=== PATIENT | female | born 1965 | race Caucasian/White ===

== ENCOUNTER 2016-09-21 10:26 | Emergency (ER) | payer OTHER ==
[~2016-09-21] VITALS: Ht 170.1 cm; Wt 74.8 kg
[~2016-09-21 10:26] MED LIST: 'zithromax250 MG PO; ADDERALL10 MG PO; ALBUTEROL0.09 MG/A2 IH; AMOXICILLIN500 M3 PO; ANAPROX DS550 MG PO; ANTIBIOTIC O500 U/GM TP; ATARAX25 MG PO; ATIVAN0.5 MG PO; AUGMENTIN 875 M1 TAB PO; AUGMENTIN 875875 MG PO; AVPAK PRIMIDONE50 M1 PO; BACTRIM DS 8001 TA1 PO; CEPHALEXIN500 M1 PO; CIPRO250 MG PO; CIPROFLOXACIN500 MG PO; CLARITIN10 MG PO; CORTISPORIN SUS10 ML OT; CYCLOBENZAPRINE10 MG PO; DIFLUCAN150 MG PO; DOLOBID500 MG PO; DOXYCYCLINE100 M2 PO; EES400 MG PO; FLEXERIL10 MG PO; FLONASE 0.05% 121 EA NAS; HYCODAN,HYDROME10 ML PO; HYDROCODONE BIT1 T11 PO; IBU800 MG PO; IMITREX100 MG PO; KEFLEX500 MG PO; KENALOG 0.5% CR15 GM PO; KENALOG0.1% TP; LEXAPRO20 MG PO; MACROBID100 M1 PO; MEDROL DOSEPAK4 MG PO; MEDROL4 M1 PO; MOTRIN600 MG PO; MOTRIN800 MG PO; NAPROSYN500 MG PO; NORCO 10-325 T1 EACH PO; NORCO 325 MG-101 TAB PO; PERCOCET 325 MG1 TA2 PO; PERCOCET 325 MG1 TA7 PO; PERMETHRIN TP; PHENERGAN W/ DE30 ML PO; PRAVACHOL80 MG PO; PREDNICOT10 MG PO; PREDNICOT20 MG PO; PREDNISONE10 MG PO; PRIMIDONE50 MG PO; PROPRANOLOL HCL80 M2 PO; PROPRANOLOL HCL80 M3 PO; STRATTERA40 MG PO; TEMAZEPAM15 MG PO; TESSALON PERLE100 M1 PO; TRAMADOL HCL50 MG PO; TRAZODONE50 MG PO; VIBRAMYCIN100 MG PO; VICODIN 5-3001 EACH PO; VICODIN 5/500 505 MG PO; VICODIN 500 MG-1 TAB PO; VISTARIL50 MG PO; VOLTAREN50 M1 PO; ZETIA10 MG PO; ZITHROMAX Z PA250 MG PO; ZOCOR20 MG PO; ZOCOR40 MG PO; ZOFRAN ODT4 MG SL; ZOLPIDEM10 MG PO; [UNRECOGNIZED DRUG - REMARK]; [UNRECOGNIZED DRUG - REMARK]
[2016-09-21] MEDS ORDERED: TRAMADOL HCL50 MG PO (13:28)
== END 2016-09-21 13:31 | disposition home or self-care (01) ==
LOC: ED 10:26
DX: S23.41XA Sprain of ribs, initial encounter (principal); Z90.49 Acquired absence of other specified parts of digestive tract; Z90.710 Acquired absence of both cervix and uterus; Z98.890 Other specified postprocedural states; Z79.899 Other long term (current) drug therapy; Z88.5 Allergy status to narcotic agent; Z88.6 Allergy status to analgesic agent; X58.XXXA Exposure to other specified factors, initial encounter; Y93.89 Activity, other specified; Y92.89 Other specified places as the place of occurrence of the external cause; Y99.9 Unspecified external cause status

== ENCOUNTER 2016-10-17 17:07 | Emergency (ER) | payer OTHER ==
[~2016-10-17] VITALS: Ht 170.1 cm; Wt 74.8 kg
[2016-10-17 19:07] LABS: BASO % 0.2 % (0.0-1.0); EOS % 0.2 % (1.0-4.0); HEMATOCRIT 38.4 % (37.0-47.0); HEMOGLOBIN 12.7 g/dl (12.0-16.0); LYMPH # 2.9 10*3/uL (1.3-4.4); LYMPH % 49.1 % (27.0-41.0); MEAN CELL VOLUME 90.8 fl (81.0-99.0); MEAN CORPUSCULAR HGB CONC 33.1 g/dl (33.0-37.0); MEAN PLATELET VOLUME 9.7 fl (9.6-12.3); MONO # 0.5 10*3/uL (0.1-1.0); MONO % 7.8 % (3.0-9.0); NEUT # 2.5 10*3/uL (2.3-7.9); NEUT % 42.5 % (47.0-73.0); PLATELET COUNT AUTOMATED 350 10*3/uL (130-400); RED BLOOD COUNT 4.23 10*6/uL (4.10-5.10); RED CELL DISTRI WIDTH 14.1 % (0-14.5); WHITE BLOOD COUNT 5.8 10*3/uL (4.8-10.8)
[2016-10-17 19:45] LABS: ALBUMIN 3.4 gm/dl (3.1-4.5); ALKALINE PHOSPHATASE 120 U/L (45-117); BILIRUBIN, TOTAL 0.5 mg/dl (0.2-1.0); BUN 11 mg/dl (7-24); CARBON DIOXIDE 25 mmol/L (21-32); CHLORIDE 108 mmol/L (98-107); EST GLOM FILT AFRICAN AMERICAN > 60 ml/min; GLUCOSE 102 mg/dL (65-99); POTASSIUM 3.5 mmol/L (3.5-5.1); SGOT/AST 17 IU/L (3-35); SGPT/ALT 23 U/L (12-78); SODIUM 139 mmol/L (136-145); TOTAL PROTEIN 7.1 gm/dL (6.4-8.2)
[2016-10-17 20:32] LABS: BILIRUBIN NEGATIVE (NEGATIVE); BLOOD NEGATIVE (NEGATIVE); CLARITY SL CLOUDY (CLEAR); COLOR YELLOW (YELLOW); GLUCOSE NEGATIVE (NEGATIVE); KETONE NEGATIVE (NEGATIVE); LEUKO ESTERASE 3+ (NEGATIVE); NITRITE POSITIVE (NEGATIVE); PROTEIN NEGATIVE (NEGATIVE); SPECIFIC GRAVITY <= 1.005 (1.005-1.030); UROBILINOGEN 0.2 E.U./dl (0.2-1.0)
[2016-10-17 20:38] LABS: BACTERIA 4+; EPITHELIAL CELLS 0-2; URINE REFLEX COMMENT YES (NO); WBC 21-30 wbc/hpf (0-5)
[2016-10-17] MEDS ORDERED: MACROBID100 M1 PO (21:45)
[2016-10-17] MEDS ORDERED: PYRIDIUM200 M1 PO (21:45)
== END 2016-10-17 22:53 | disposition home or self-care (01) ==
LOC: ED 17:07
PROVIDERS: Nurse Practitioner Family
DX: N39.0 Urinary tract infection, site not specified (principal); Z88.6 Allergy status to analgesic agent; Z79.899 Other long term (current) drug therapy; Z90.49 Acquired absence of other specified parts of digestive tract

== ENCOUNTER 2016-11-01 14:54 | Emergency (ER) | payer OTHER ==
[~2016-11-01] VITALS: Wt 74.8 kg
[~2016-11-01 14:54] MED LIST changes: +PYRIDIUM200 M1 PO
== END 2016-11-01 18:09 | disposition home or self-care (01) ==
LOC: ED 14:54
DX: S20.211A Contusion of right front wall of thorax, initial encounter (principal); M54.6 Pain in thoracic spine; Z88.6 Allergy status to analgesic agent; Z79.899 Other long term (current) drug therapy; W18.09XA Striking against other object with subsequent fall, initial encounter; Y93.89 Activity, other specified; Y92.89 Other specified places as the place of occurrence of the external cause; Y99.8 Other external cause status

== ENCOUNTER 2016-11-03 15:12 | Emergency (ER) | payer OTHER ==
[~2016-11-03] VITALS: Ht 170.1 cm; Wt 74.8 kg
== END 2016-11-03 17:12 | disposition home or self-care (01) ==
LOC: ED 15:12
DX: S20.211D Contusion of right front wall of thorax, subsequent encounter (principal); M54.5 Low back pain; Z90.49 Acquired absence of other specified parts of digestive tract; Z90.710 Acquired absence of both cervix and uterus; Z98.890 Other specified postprocedural states; Z79.899 Other long term (current) drug therapy; Z88.5 Allergy status to narcotic agent; Z88.6 Allergy status to analgesic agent; X58.XXXD Exposure to other specified factors, subsequent encounter

== ENCOUNTER → 2016-11-10 | Outpatient (CLI) | payer OTHER | END | disposition home or self-care (01) | LOC: MRI 11-08 07:00 → LAB 10:32 → MRI 11:00 | DX: M54.6 Pain in thoracic spine (principal); M54.9 Dorsalgia, unspecified ==

== ENCOUNTER 2017-01-01 19:26 | Emergency (ER) | payer OTHER ==
[~2017-01-01] VITALS: Ht 170.1 cm; Wt 79.4 kg
[2017-01-01 20:09] LABS: URINE AMPHETAMINES < 1000 (1000ng/ml); URINE BARBITURATES > 200 (200ng/ml); URINE COCAINE < 300 (300ng/ml)
[2017-01-01 20:10] LABS: BASO % 0.4 % (0.0-1.0); EOS % 0.5 % (1.0-4.0); HEMATOCRIT 35.7 % (37.0-47.0); HEMOGLOBIN 11.8 g/dl (12.0-16.0); LYMPH # 2.6 10*3/uL (1.3-4.4); LYMPH % 46.4 % (27.0-41.0); MEAN CORPUSCULAR HGB 29.4 pg (27.0-31.0); MEAN CORPUSCULAR HGB CONC 33.1 g/dl (33.0-37.0); MEAN PLATELET VOLUME 10.1 fl (9.6-12.3); MONO # 0.3 10*3/uL (0.1-1.0); MONO % 5.1 % (3.0-9.0); NEUT # 2.6 10*3/uL (2.3-7.9); NEUT % 47.4 % (47.0-73.0); PLATELET COUNT AUTOMATED 322 10*3/uL (130-400); RED BLOOD COUNT 4.01 10*6/uL (4.10-5.10); RED CELL DISTRI WIDTH 12.5 % (0-14.5); WHITE BLOOD COUNT 5.5 10*3/uL (4.8-10.8)
[2017-01-01 20:26] LABS: ALBUMIN 3.3 gm/dl (3.1-4.5); ALKALINE PHOSPHATASE 149 U/L (45-117); BILIRUBIN, TOTAL 0.5 mg/dl (0.2-1.0); BUN 10 mg/dl (7-24); CARBON DIOXIDE 25 mmol/L (21-32); CHLORIDE 107 mmol/L (98-107); EST GLOM FILT AFRICAN AMERICAN > 60 ml/min; GLUCOSE 113 mg/dL (65-99); POTASSIUM 2.7 mmol/L (3.5-5.1); SGOT/AST 20 IU/L (3-35); SGPT/ALT 20 U/L (12-78); SODIUM 142 mmol/L (136-145); TOTAL PROTEIN 7.1 gm/dL (6.4-8.2)
== END 2017-01-02 00:56 | disposition home or self-care (01) ==
LOC: ED 19:26
PROVIDERS: Emergency Medicine
DX: T42.4X4A Poisoning by benzodiazepines, undetermined, initial encounter (principal); F41.9 Anxiety disorder, unspecified; E87.6 Hypokalemia; F32.9 Major depressive disorder, single episode, unspecified; Z88.6 Allergy status to analgesic agent; Z79.899 Other long term (current) drug therapy; Y92.9 Unspecified place or not applicable

== ENCOUNTER → 2017-01-24 | Outpatient (CLI) | payer OTHER | END | disposition home or self-care (01) | LOC: RAD 10:46 | DX: M79.602 Pain in left arm (principal); Z98.890 Other specified postprocedural states ==

== ENCOUNTER 2017-02-19 11:44 | Emergency (ER) | payer OTHER ==
[~2017-02-19] VITALS: Ht 170.1 cm; Wt 73.9 kg
[2017-02-19 12:25] LABS: BASO % 0.9 % (0.0-1.0); EOS % 1.1 % (1.0-4.0); HEMATOCRIT 35.9 % (37.0-47.0); HEMOGLOBIN 11.9 g/dl (12.0-16.0); LYMPH # 1.8 10*3/uL (1.3-4.4); MEAN CELL VOLUME 87.6 fl (81.0-99.0); MEAN CORPUSCULAR HGB CONC 33.1 g/dl (33.0-37.0); MEAN PLATELET VOLUME 9.7 fl (9.6-12.3); MONO # 0.2 10*3/uL (0.1-1.0); MONO % 6.6 % (3.0-9.0); NEUT # 1.4 10*3/uL (2.3-7.9); NEUT % 39.1 % (47.0-73.0); PLATELET COUNT AUTOMATED 297 10*3/uL (130-400); RED CELL DISTRI WIDTH 12.9 % (0-14.5); WHITE BLOOD COUNT 3.5 10*3/uL (4.8-10.8)
[2017-02-19 12:39] LABS: ALBUMIN 3.1 gm/dl (3.1-4.5); ALKALINE PHOSPHATASE 129 U/L (45-117); BUN 13 mg/dl (7-24); CHLORIDE 107 mmol/L (98-107); CREATININE 0.79 mg/dL (0.55-1.02); POTASSIUM 3.2 mmol/L (3.5-5.1); SGOT/AST 18 IU/L (3-35); SGPT/ALT 24 U/L (12-78); SODIUM 141 mmol/L (136-145); TOTAL PROTEIN 6.7 gm/dL (6.4-8.2)
[2017-02-19] MEDS ORDERED: FLAGYL500 MG PO (13:57)
[2017-02-19] MEDS ORDERED: LEVOFLOXACIN500 MG PO (13:57)
== END 2017-02-19 14:11 | disposition home or self-care (01) ==
LOC: ED 11:44
PROVIDERS: Emergency Medicine
DX: K57.92 Diverticulitis of intestine, part unspecified, without perforation or abscess without bleeding (principal); Z88.6 Allergy status to analgesic agent; Z79.899 Other long term (current) drug therapy

== ENCOUNTER → 2017-07-26 | Outpatient (CLI) | payer OTHER ==
[~2017-07-26] MED LIST changes: +FLAGYL500 MG PO; +LEVOFLOXACIN500 MG PO
== END | disposition home or self-care (01) ==
LOC: LAB 08:06 → CT 09:00
PROVIDERS: Internal Medicine Hematology & Oncology
DX: K76.0 Fatty (change of) liver, not elsewhere classified (principal); K57.30 Diverticulosis of large intestine without perforation or abscess without bleeding

== ENCOUNTER 2017-08-17 14:21 | Emergency (ER) | payer OTHER ==
[~2017-08-17] VITALS: Ht 170.1 cm; Wt 72.6 kg
[2017-08-17] MEDS ORDERED: DELTASONE20 M1 PO (16:19)
[2017-08-17] MEDS ORDERED: ZITHROMAX250 MG PO (16:19)
== END 2017-08-17 16:22 | disposition home or self-care (01) ==
LOC: ED 14:21
DX: J40 Bronchitis, not specified as acute or chronic (principal); R51 Headache; H92.03 Otalgia, bilateral; R19.7 Diarrhea, unspecified; Z79.899 Other long term (current) drug therapy

== ENCOUNTER 2017-08-21 11:12 | Emergency (ER) | payer OTHER ==
[~2017-08-21] VITALS: Ht 170.1 cm; Wt 72.6 kg
[~2017-08-21 11:12] MED LIST changes: +DELTASONE20 M1 PO; +ZITHROMAX250 MG PO
[2017-08-21 12:00] LABS: BASO % 0.1 % (0.0-1.0); HEMATOCRIT 36.3 % (37.0-47.0); HEMOGLOBIN 11.7 g/dl (12.0-16.0); LYMPH # 3.3 10*3/uL (1.3-4.4); MEAN CELL VOLUME 86.4 fl (81.0-99.0); MEAN CORPUSCULAR HGB 27.9 pg (27.0-31.0); MEAN CORPUSCULAR HGB CONC 32.2 g/dl (33.0-37.0); MONO # 0.5 10*3/uL (0.1-1.0); MONO % 5.8 % (3.0-9.0); NEUT # 4.1 10*3/uL (2.3-7.9); NEUT % 51.6 % (47.0-73.0); PLATELET COUNT AUTOMATED 306 10*3/uL (130-400); RED CELL DISTRI WIDTH 14.1 % (0-14.5); WHITE BLOOD COUNT 7.9 10*3/uL (4.8-10.8)
[2017-08-21 12:20] LABS: ALBUMIN 3.2 gm/dl (3.1-4.5); ALKALINE PHOSPHATASE 122 U/L (45-117); BUN 12 mg/dl (7-24); CHLORIDE 106 mmol/L (98-107); CREATININE 0.69 mg/dL (0.55-1.02); POTASSIUM 2.8 mmol/L (3.5-5.1); SGOT/AST 10 IU/L (3-35); SGPT/ALT 18 U/L (12-78); SODIUM 140 mmol/L (136-145); TOTAL PROTEIN 6.7 gm/dL (6.4-8.2)
[2017-08-21] MEDS ORDERED: EFFER-K20 MEQ PO (12:47)
== END 2017-08-21 12:56 | disposition home or self-care (01) ==
LOC: ED 11:12
PROVIDERS: Nurse Practitioner Family
DX: J20.9 Acute bronchitis, unspecified (principal); E87.6 Hypokalemia; R03.0 Elevated blood-pressure reading, without diagnosis of hypertension; F17.200 Nicotine dependence, unspecified, uncomplicated; Z90.49 Acquired absence of other specified parts of digestive tract; Z90.710 Acquired absence of both cervix and uterus; Z98.890 Other specified postprocedural states; Z79.899 Other long term (current) drug therapy; Z88.5 Allergy status to narcotic agent; Z88.6 Allergy status to analgesic agent

== ENCOUNTER 2017-08-25 14:43 | Emergency (ER) | payer OTHER ==
[~2017-08-25] VITALS: Ht 170.1 cm; Wt 72.6 kg
[~2017-08-25 14:43] MED LIST changes: +EFFER-K20 MEQ PO; -PROPRANOLOL HCL80 M2 PO; +PROPRANOLOL HYD80 M1 PO
[2017-08-25 16:00] LABS: BASO % 0.3 % (0.0-1.0); EOS # 0.1 10*3/uL (0.0-0.4); EOS % 1.2 % (1.0-4.0); HEMATOCRIT 38.2 % (37.0-47.0); HEMOGLOBIN 12.3 g/dl (12.0-16.0); LYMPH # 2.2 10*3/uL (1.3-4.4); LYMPH % 37.8 % (27.0-41.0); MEAN CORPUSCULAR HGB CONC 32.2 g/dl (33.0-37.0); MEAN PLATELET VOLUME 10.2 fl (9.6-12.3); MONO # 0.4 10*3/uL (0.1-1.0); MONO % 7.5 % (3.0-9.0); NEUT # 3.1 10*3/uL (2.3-7.9); NEUT % 52.9 % (47.0-73.0); PLATELET COUNT AUTOMATED 285 10*3/uL (130-400); RED BLOOD COUNT 4.39 10*6/uL (4.10-5.10); RED CELL DISTRI WIDTH 14.4 % (0-14.5); WHITE BLOOD COUNT 5.9 10*3/uL (4.8-10.8)
[2017-08-25 16:16] LABS: ALBUMIN 3.3 gm/dl (3.1-4.5); ALKALINE PHOSPHATASE 130 U/L (45-117); BUN 17 mg/dl (7-24); CHLORIDE 105 mmol/L (98-107); CREATININE 0.87 mg/dL (0.55-1.02); POTASSIUM 2.6 mmol/L (3.5-5.1); SGOT/AST 16 IU/L (3-35); SGPT/ALT 17 U/L (12-78); SODIUM 140 mmol/L (136-145); TOTAL PROTEIN 7.1 gm/dL (6.4-8.2)
[2017-08-25] MEDS ORDERED: TESSALON PERLE100 M1 PO (16:37)
[2017-08-25] MEDS ORDERED: KLOR-CON M2020 ME1 PO (16:37)
== END 2017-08-25 16:43 | disposition home or self-care (01) ==
LOC: ED 14:43
PROVIDERS: Nurse Practitioner Family
DX: J20.9 Acute bronchitis, unspecified (principal); E87.6 Hypokalemia; R03.0 Elevated blood-pressure reading, without diagnosis of hypertension; Z90.49 Acquired absence of other specified parts of digestive tract; Z90.710 Acquired absence of both cervix and uterus; Z98.890 Other specified postprocedural states; Z79.899 Other long term (current) drug therapy; Z88.5 Allergy status to narcotic agent; Z88.6 Allergy status to analgesic agent; Z88.8 Allergy status to other drugs, medicaments and biological substances

== ENCOUNTER 2017-08-26 18:50 | Inpatient (IN) | payer OTHER ==
[~2017-08-26] VITALS: Ht 170.1 cm; Wt 77.1 kg
--- NOTE | ~2017-08-26 | EKG ---
[place], [place] ELECTROCARDIOGRAM REPORT NAME: MAYITO CABRERA UNIT #: [id number] ROOM: 426 DOCTOR: EDMUND NOBLE,YVES BIRTHDATE: [birth year] DOS: 08/26/2017 TIME: 9:41. IMPRESSION: 1. Sinus rhythm. 2. Sinus tachycardia. 3. Low voltage complexes. 4. 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 5. Normal QT interval. YVES SHAFFER MD CM:EKGRPT:ELECTROCARDIOGRAM REPORT [id number] YVES SHAFFER MD
--- NOTE | ~2017-08-26 | WRIGHTHP ---
[place], [place] PATIENT HISTORY AND PHYSICAL EXAM NAME: MAYITO CABRERA UNIT #: [id number] ROOM: 426 DOCTOR: SHONNA EVANS MD BIRTHDATE: [birth year] DOS: 08/26/2017 HISTORY OF PRESENT ILLNESS: The patient is 51 years old, very well known to us. She has had multiple ER visits with complaints of cough and chest congestion and shortness of breath. The patient has been treated with antibiotics as an outpatient and did not get any better, so she finally decided to come back to the Emergency Room yesterday and she was admitted because of continued complaints of chest pain and shortness of breath. PAST MEDICAL HISTORY: Significant for: 1. Benign hypertension. 2. Major depression, mild, recurrent. 3. Mixed hyperlipidemia. 4. Generalized anxiety disorder. MEDICATIONS: Zolpidem 10 at bedtime, Pravachol 80 daily, propranolol 80 daily, potassium 20 daily, lorazepam 0.5 at bedtime, Zetia 10 daily, Lexapro 20 daily. SOCIAL HISTORY: Smoker of about half to 1 pack of cigarettes. Denies using any alcohol. PHYSICAL EXAMINATION: GENERAL: She is awake and alert and oriented. VITAL SIGNS: Graphic trend shows blood pressure of 102/52, pulse of 102, respirations 18, temperature 97.2. LUNGS: Clear, except few rales heard at the bases. HEART: Regular. ABDOMEN: Obese. EXTREMITIES: Without any edema. LABORATORY DATA: Chest x-ray shows segmental atelectasis. White cell count is 4.2. ASSESSMENT AND PLAN: 1. This is a patient who presents with cough and shortness of breath, most likely has underlying pneumonia, possible gram negative. We will do a CT of the chest this morning to see the extent of infection. 2. Moderate cigarette smoker. Advised smoking cessation. Low dose steroid was started during the night. This is causing the patient to have a lot of tremors, so we will cut back on the steroid dosage. 3. Generalized anxiety disorder. Home medications have been continued. 4. Chest pain, noncardiac, atypical, most likely from continued cough. Tylenol has been ordered for pain. [place], [place] PATIENT HISTORY AND PHYSICAL EXAM NAME: MAYITO CABRERA UNIT #: [id number] ROOM: 426 DOCTOR: SHONNA EVANS MD BIRTHDATE: [birth year] SHONNA EVANS MD CM:HISPHYS:PATIENT HISTORY AND PHYSICAL EXAMINATION 0747 5 SHONNA EVANS MD 08/27/1746 interface
[~2017-08-26 18:50] MED LIST changes: +KLOR-CON M2020 ME1 PO
[2017-08-26 18:51] VITALS: BP 129/87
[2017-08-26 19:40] LABS: BASO % 0.5 % (0.0-1.0); EOS # 0.1 10*3/uL (0.0-0.4); EOS % 1.4 % (1.0-4.0); HEMOGLOBIN 11.7 g/dl (12.0-16.0); LYMPH # 1.9 10*3/uL (1.3-4.4); LYMPH % 45.1 % (27.0-41.0); MEAN CELL VOLUME 86.3 fl (81.0-99.0); MEAN CORPUSCULAR HGB 28.1 pg (27.0-31.0); MEAN CORPUSCULAR HGB CONC 32.5 g/dl (33.0-37.0); MEAN PLATELET VOLUME 10.1 fl (9.6-12.3); MONO # 0.4 10*3/uL (0.1-1.0); NEUT # 1.8 10*3/uL (2.3-7.9); NEUT % 42.5 % (47.0-73.0); PLATELET COUNT AUTOMATED 246 10*3/uL (130-400); RED BLOOD COUNT 4.17 10*6/uL (4.10-5.10); RED CELL DISTRI WIDTH 14.6 % (0-14.5); WHITE BLOOD COUNT 4.2 10*3/uL (4.8-10.8)
[2017-08-26 19:57] LABS: ALBUMIN 3.1 gm/dl (3.1-4.5); ALKALINE PHOSPHATASE 122 U/L (45-117); BUN 13 mg/dl (7-24); CHLORIDE 110 mmol/L (98-107); CREATININE 0.89 mg/dL (0.55-1.02); POTASSIUM 3.4 mmol/L (3.5-5.1); SGOT/AST 13 IU/L (3-35); SGPT/ALT 17 U/L (12-78); SODIUM 139 mmol/L (136-145); TOTAL PROTEIN 6.7 gm/dL (6.4-8.2)
[2017-08-26 19:59] LABS: TROPONIN I < 0.015 ng/ml (<0.045)
[2017-08-26 20:28] VITALS: BP 138/78
[2017-08-26 21:24] VITALS: BP 113/52
[2017-08-27] VITALS: BP 102/52
[2017-08-27 08:00] VITALS: BP 110/63
[2017-08-27 12:00] VITALS: BP 135/70
[2017-08-27 16:00] VITALS: BP 102/42
== END 2017-08-27 16:44 | disposition left against medical advice (07) | DRG 178 ==
LOC: ED 18:50 → EDHOLD 20:43 → 4E 20:55
PROVIDERS: Emergency Medicine Emergency Medical Services
DX: J15.6 Pneumonia due to other Gram-negative bacteria (principal); F33.0 Major depressive disorder, recurrent, mild; M54.5 Low back pain; E78.2 Mixed hyperlipidemia; F41.1 Generalized anxiety disorder; J40 Bronchitis, not specified as acute or chronic; I10 Essential (primary) hypertension; G89.29 Other chronic pain; F17.210 Nicotine dependence, cigarettes, uncomplicated; R07.89 Other chest pain; Z53.21 Procedure and treatment not carried out due to patient leaving prior to being seen by health care provider; Z88.5 Allergy status to narcotic agent; Z88.8 Allergy status to other drugs, medicaments and biological substances; Z91.041 Radiographic dye allergy status; Z79.899 Other long term (current) drug therapy; Z87.440 Personal history of urinary (tract) infections; Z90.710 Acquired absence of both cervix and uterus; Z82.49 Family history of ischemic heart disease and other diseases of the circulatory system; Z82.3 Family history of stroke; Z80.9 Family history of malignant neoplasm, unspecified; Z87.19 Personal history of other diseases of the digestive system

== ENCOUNTER 2017-12-19 12:23 | Emergency (ER) | payer OTHER ==
[~2017-12-19] VITALS: Ht 170.2 cm; Wt 72.6 kg
[2017-12-19] MEDS ORDERED: PREDNISONE20 M1 PO (13:05)
[2017-12-19] MEDS ORDERED: LIDEX 0.05% CRE15 GM T (13:05)
[2018-01-11] MEDS ORDERED: FAMCICLOVIR500 MG PO (12:57)
[2018-01-11] MEDS ORDERED: PREDNISONE20 M1 PO (12:57)
== END 2017-12-19 13:34 | disposition home or self-care (01) ==
LOC: ED 12:23
DX: L25.9 Unspecified contact dermatitis, unspecified cause (principal); Z88.6 Allergy status to analgesic agent; Z79.899 Other long term (current) drug therapy

== ENCOUNTER 2017-12-23 11:59 | Emergency (ER) | payer OTHER ==
[~2017-12-23] VITALS: Ht 170.1 cm; Wt 74.8 kg
[~2017-12-23 11:59] MED LIST changes: +LIDEX 0.05% CRE15 GM T; +PREDNISONE20 M1 PO
[2017-12-23] MEDS ORDERED: VALTREX1000 MG PO (12:35)
[2018-01-11] MEDS ORDERED: FAMCICLOVIR500 MG PO (12:57)
[2018-01-11] MEDS ORDERED: PREDNISONE20 M1 PO (12:57)
== END 2017-12-23 12:57 | disposition home or self-care (01) ==
LOC: ED 11:59
DX: R21 Rash and other nonspecific skin eruption (principal); R03.0 Elevated blood-pressure reading, without diagnosis of hypertension; Z90.49 Acquired absence of other specified parts of digestive tract; Z98.890 Other specified postprocedural states; Z79.899 Other long term (current) drug therapy; Z88.5 Allergy status to narcotic agent; Z88.6 Allergy status to analgesic agent

== ENCOUNTER 2017-12-28 12:43 | Emergency (ER) | payer OTHER ==
[~2017-12-28] VITALS: Ht 170.1 cm; Wt 74.8 kg
[~2017-12-28 12:43] MED LIST changes: +VALTREX1000 MG PO
[2017-12-28] MEDS ORDERED: LIDODERM1 EACH T (13:46)
[2018-01-11] MEDS ORDERED: PREDNISONE20 M1 PO (12:57)
[2018-01-11] MEDS ORDERED: FAMCICLOVIR500 MG PO (12:57)
== END 2017-12-28 14:05 | disposition home or self-care (01) ==
LOC: ED 12:43
DX: B02.9 Zoster without complications (principal); M54.9 Dorsalgia, unspecified; Z88.6 Allergy status to analgesic agent; Z79.899 Other long term (current) drug therapy

== ENCOUNTER 2018-04-22 19:13 | Emergency (ER) | payer OTHER ==
[~2018-04-22] VITALS: Ht 170.1 cm; Wt 77.1 kg
[~2018-04-22 19:13] MED LIST changes: +FAMCICLOVIR500 MG PO; +LIDODERM1 EACH T
== END 2018-04-22 21:55 | disposition home or self-care (01) ==
LOC: ED 19:13
DX: S40.012A Contusion of left shoulder, initial encounter (principal); Z88.5 Allergy status to narcotic agent; Z91.041 Radiographic dye allergy status; Z88.6 Allergy status to analgesic agent; Z79.899 Other long term (current) drug therapy; Z90.49 Acquired absence of other specified parts of digestive tract; Z90.710 Acquired absence of both cervix and uterus; W22.8XXA Striking against or struck by other objects, initial encounter; Y93.89 Activity, other specified; Y92.89 Other specified places as the place of occurrence of the external cause; Y99.8 Other external cause status

== ENCOUNTER 2018-07-21 14:18 | Inpatient (IN) | payer OTHER ==
[~2018-07-21] VITALS: Ht 170.1 cm; Wt 75.9 kg
--- NOTE | ~2018-07-21 | PR ---
[place], [place] PROGRESS NOTE NAME: MAYITO CABRERA UNIT #: [id number] ROOM: [facility] DOCTOR: MARINA MOCK MD BIRTHDATE: [birth year] DOS: 07/22/2018 SUBJECTIVE: The patient is symptomatic and insisting on going home, but she was deemed high risk for suicide by Psychiatry, so she has been kept at the hospital against her wishes on Psychiatry recommendation. OBJECTIVE: VITAL SIGNS: Blood pressure 110/50, heart rate of 66 beats per minute, breathing normally, afebrile. GENERAL APPEARANCE: The patient is alert and oriented x 3, in no visible distress. HEENT AND NECK: Exam within normal limits. CARDIOVASCULAR SYSTEM: Heart rate is regular in rate and rhythm. S1 and S2 normally audible. LUNGS: Clear to auscultation. ABDOMEN: Soft, nontender. No obvious organomegaly. Bowel sounds are present. EXTREMITIES: Without significant cyanosis or edema. The patient with overdose of trazodone, Ativan and Atarax with QT prolongation, is being followed closely with EKGs and magnesium level is high after magnesium level infusion. IMPRESSION: 1. The patient's suicide attempt at home and QT prolongation, is insisting on going home, but Psychiatry consult has recommended to keep the patient in the hospital against her wishes for her own safety because she is at a high risk for suicide. Psychosocial services are following the patient. 2. Drug overdose with trazodone, Ativan and Atarax with QT prolongation, for which EKGs are being monitored and magnesium has been given. The patient is awake, alert and oriented now. 3. Major depression, recurrent, mild to moderate, treated with multiple medications in the past. Psychiatry following. 4. Benign essential hypertension with controlled blood pressures. 5. Mixed hyperlipidemia, treated with Pravachol. [facility], [place] PROGRESS NOTE NAME: MAYITO CABRERA UNIT #: [id number] ROOM: [facility] DOCTOR: MARINA MOCK MD BIRTHDATE: [birth year] MARINA MOCK MD CM:PNTRANS [id number] MARINA MOCK MD 07/23/18 0255 interface
--- NOTE | ~2018-07-21 | EKG ---
[place], [place] ELECTROCARDIOGRAM REPORT NAME: MAYITO CABRERA UNIT #: [id number] ROOM: [facility] DOCTOR: KAYLIE DRAFT REPORT BIRTHDATE: [birth year] [facility] Test Date: 2018-07-23 Test Time: 06:51:32 Pat Name: MAYITO CABRERA Department: Room: [place] [address] Gender: F Runner Worker: Leny Goldstein : 1965 Requested By: MARINA MOCK Order Number: [id number] Reading MD: Kristie Danielson MD Measurements Intervals [place] Rate: 84 P: -20 [place]: 176 QRS: 4 QRSD: 95 T: 25 QT: 406 QTc: 480 Interpretive Statements Sinus rhythm Non specific ST-T abnormality Electronically Signed On 07-23-2018 7:39:21 PST by Kristie Danielson MD CM:EKGRPT:ELECTROCARDIOGRAM REPORT [id number] 0739 MARINA MOCK MD EPIPHANY DRAFT REPORT MARINA MOCK MD
--- NOTE | ~2018-07-21 | WRIGHTHP ---
[place], [place] PATIENT HISTORY AND PHYSICAL EXAM [id number] UNIT #: [id number] ROOM: [facility] DOCTOR: MARINA MOCK MD BIRTHDATE: [birth year] DOS: 07/21/2018 HISTORY OF PRESENT ILLNESS: The patient is a 52-year-old female with a past medical history of: 1. Benign essential hypertension, major depression, recurrent, mild. 2. Mixed hyperlipidemia. 3. Generalized anxiety disorder. 4. Chronic primary insomnia. The patient presented to [facility] Emergency Department with complaints of depression and taking unknown amount of trazodone, Ativan, Atarax about an hour in an attempted suicide. The patient was evaluated in the Emergency Department. Poison Control was consulted. EKG was performed and Poison Control asked the patient's QT interval to be monitored with an EKG. The patient was given 2 grams of IV magnesium and the patient was in the ICU, wakes up easily, does not look very drowsy and in no visible distress. PHYSICAL EXAMINATION: GENERAL: Alert and oriented x 3. No visible distress. The patient is slightly sleepy, but wakes up easily. VITAL SIGNS: Blood pressure 111/62, heart rate of 71 beats per minute, breathing 22 times per minute, afebrile. HEENT AND NECK: Extraocular movements are intact. Sclerae are anicteric. Oral mucosa is moist and clean. No obvious facial weakness. Neck is supple without any lymphadenopathy. No thyromegaly. No JVD. No carotid arterial bruits. LUNGS: Clear to auscultation. No wheezing. No rhonchi. CARDIOVASCULAR SYSTEM: Heart rate is regular in rate and rhythm. S1 and S2 normally audible. No significant murmur or any other abnormal cardiac sounds. ABDOMEN: Soft, nontender. No obvious organomegaly. Bowel sounds are present. No obvious herniation. EXTREMITIES: Without significant cyanosis or edema. Warm to touch. CENTRAL NERVOUS SYSTEM: Alert and oriented x 3. Cranial nerves II-XII are intact. Speech is normal. The patient is able to move all extremities. Normal muscle strength. Deep tendon reflexes are equal on both sides. Plantars were downgoing. LABORATORY DATA: Urine drug screen was negative and will be repeated tomorrow. Salicylate levels were low. Hemoglobin 11. IMPRESSION AND PLAN: 1. The patient with drug overdose with several medications including trazodone, Ativan, Atarax. According to the patient, she is not very drowsy and may not have consumed all the pills she is suspected to. As a precaution, the patient is being watched very closely in the ICU and Poison Control. I have recommended a repeat EKG to watch her QT interval. The patient already given magnesium infusion of 2 grams intravenously and her QT is within normal range on the EKG. 2. History of major depression, recurrent, mild, has been treated and controlled. 3. Benign essential hypertension, treat, blood pressures are staying normal and will be monitored. 4. Mixed hyperlipidemia, treated with Pravachol. [place], [place] PATIENT HISTORY AND PHYSICAL EXAM NAME: MAYITO CABRERA UNIT #: [id number] ROOM: [facility] DOCTOR: EMILI NOBLE,MARINA Fenton BIRTHDATE: [birth year] 5. Suicidal ideation, although the patient does not feel suicidal anymore. Cristina Rousseau from psych certified social workers in health care and psychiatrist, Dr. Li has been consulted. MARINA MOCK MD CM:HISPHYS:PATIENT HISTORY AND PHYSICAL EXAMINATION 27 [phone] MARINA MOCK MD 07/22/18 0038 interface
--- NOTE | ~2018-07-21 | DS ---
[place], [place] DISCHARGE SUMMARY NAME: MAYITO HORAN UNIT #: [id number] ROOM: [facility] DOCTOR: MARINA MOCK MD BIRTHDATE: [birth year] DOS: 07/23/2018 DISCHARGE DIAGNOSES: 1. The patient is suicidal and after suicidal attempt at home being transferred to [facility]. 2. Benign essential hypertension. 3. Mixed hyperlipidemia. 4. Generalized anxiety disorder. 5. Chronic primary insomnia. HOSPITAL COURSE: The patient admitted to [facility] after she presented to the Emergency Department after attempting a drug overdose with trazodone, Ativan, and Atarax in a suicide attempt. The patient was monitored closely in the ICU and had QT prolongation, which was treated with magnesium infusion. Poison Control was consulted and the patient is doing better now. Psychiatry was consulted who recommended that the patient should be treated in the Behavioral Health Unit because she is at high risk for attempted suicide again. The patient required a pink slip to keep her at the hospital against her will because she was trying to leave and alma horan was called when she attempted to leave. Dr. Li, the psychiatrist has accepted her at Behavioral Health Unit where she will be kept until cleared by Psychiatry and considered safe to go home. The patient says now that she is not suicidal and she is feeling well. No chest pain, no shortness of breath, no GI, or urinary symptoms. 1. Drug overdose with trazodone, Ativan, and Atarax with QT prolongation, which has resolved. The patient was monitored closely in the ICU and treated with magnesium infusion. Magnesium levels have been normal. 2. Major depression, recurrent, moderate, treated and controlled, followed by Psychiatry. 3. Benign essential hypertension, treated and controlled. Blood pressure is staying normal. 4. Mixed hyperlipidemia, treated with Pravachol. LABORATORY DATA: Magnesium level at 2.4, hemoglobin 10, white cell count of 3800. Urine cultures grew E. coli. The patient has urinary tract infection, which is now being treated with Ceftin. DISCHARGE MANAGEMENT: Ceftin 500 mg twice a day for a week. The patient is on Abilify 10 mg a day, Zyprexa 10 mg every 4 hours IM p.r.n., lorazepam 1 mg q. 4 hours p.r.n. Ceftin 500 mg b.i.d. for a week, Ambien 5 mg at bedtime p.r.n. for sleep. [place], [place] DISCHARGE SUMMARY NAME: MAYITO HORAN UNIT #: [id number] ROOM: [facility] DOCTOR: MARINA MOCK MD BIRTHDATE: [birth year] MARINA MOCK MD CM:DISCHARG [id number] [id number] MARINA MOCK MD 07/24/18 0351 interface
--- NOTE | ~2018-07-21 | EKG ---
[place], [place] ELECTROCARDIOGRAM REPORT NAME: MAYITO CABRERA UNIT #: [id number] ROOM: [facility] DOCTOR: KAYLIE DRAFT REPORT BIRTHDATE: [birth year] [facility] Test Date: 2018-07-22 Test Time: 12:26:39 Pat Name: MAYITO CABRERA Department: Room: [place] [address] Gender: F Fur Repairer: Leidy Vincent : 1965 Requested By: MARINA MOCK Order Number: [id number] Reading MD: Kristie Danielson MD Measurements Intervals [place] Rate: 87 P: -18 [place]: 163 QRS: 11 QRSD: 93 T: 31 QT: 491 QTc: 591 Interpretive Statements Sinus rhythm Anteroseptal infarct, old Prolonged QT interval Baseline wander in lead(s) V5 No previous ECG available for comparison Electronically Signed On 07-23-2018 7:38:40 PST by Kristie Danielson MD CM:EKGRPT:ELECTROCARDIOGRAM REPORT 1226 0738 MARINA MOCK MD EPIPHANY DRAFT REPORT MARINA MOCK MD
--- NOTE | ~2018-07-21 | EKG ---
[place], [place] ELECTROCARDIOGRAM REPORT NAME: MAYITO CABRERA UNIT #: [id number] ROOM: [facility] DOCTOR: KAYLIE DRAFT REPORT BIRTHDATE: [birth year] [facility] Test Date: 2018-07-22 Test Time: 08:22:04 Pat Name: MAYITO CABRERA Department: Room: [place] [address] Gender: F Panel Wirer: Leidy Vincent : 1965 Requested By: MARINA MOCK Order Number: [id number] Reading MD: Kristie Danielson MD Measurements Intervals [place] Rate: 82 P: -33 [place]: 158 QRS: 12 QRSD: 92 T: 16 QT: 438 QTc: 512 Interpretive Statements Sinus rhythm Anteroseptal infarct, old Prolonged QT interval No previous ECG available for comparison Electronically Signed On 07-23-2018 7:38:27 PST by Kristie Danielson MD CM:EKGRPT:ELECTROCARDIOGRAM REPORT 0738 MARINA MOCK MD EPIPHANY DRAFT REPORT MARINA MOCK MD
--- NOTE | ~2018-07-21 | EKG ---
[place], [place] ELECTROCARDIOGRAM REPORT NAME: MAYITO CABRERA UNIT #: [id number] ROOM: [facility] DOCTOR: KAYLIE DRAFT REPORT BIRTHDATE: [birth year] [facility] Test Date: 2018-07-21 Test Time: 14:38:47 Pat Name: MAYITO CABRERA Department: Room: [facility] Gender: F Supply Room Clerk: ROYA : 1965 Requested By: TEAGAN PERDUE Order Number: [id number] Reading MD: Kristie Danielson MD Measurements Intervals [place] Rate: 82 P: -3 [place]: 157 QRS: 1 QRSD: 90 T: 22 QT: 442 QTc: 517 Interpretive Statements Sinus rhythm Probable anteroseptal infarct, old Prolonged QT interval Baseline wander in lead(s) V3 Electronically Signed On 07-23-2018 7:35:02 PST by Kristie Danielson MD CM:EKGRPT:ELECTROCARDIOGRAM REPORT 1438 0735 TEAGAN PERDUE EPIPHANY DRAFT REPORT TEAGAN PERDUE
--- NOTE | ~2018-07-21 | EKG ---
[place], [place] ELECTROCARDIOGRAM REPORT NAME: MAYITO CABRERA UNIT #: [id number] ROOM: [facility] DOCTOR: KAYLIE DRAFT REPORT BIRTHDATE: [birth year] [facility] Test Date: 2018-07-21 Test Time: 20:18:41 Pat Name: MAYITO CABRERA Department: Room: [place] [address] Gender: F Computer Operations Technician: GILBERT : 1965 Requested By: MARINA MOCK Order Number: [id number] Reading MD: Kristie Danielson MD Measurements Intervals [place] Rate: 75 P: -21 MD: 170 QRS: 26 QRSD: 96 T: 26 QT: 495 QTc: 553 Interpretive Statements Sinus rhythm Prolonged QT interval Electronically Signed On 07-23-2018 7:35:58 PST by Kristie Danielson MD CM:EKGRPT:ELECTROCARDIOGRAM REPORT 17 0735 MARINA LOTT DRAFT REPORT MARINA MOCK MD
[~2018-07-21 14:18] MED LIST changes: -ZOLPIDEM10 MG PO; +ZOLPIDEM5 MG PO
[2018-07-21 14:22] VITALS: BP 102/58
[2018-07-21 14:46] LABS: BASO % 0.6 % (0.0-1.0); EOS # 0.1 10*3/uL (0.0-0.4); EOS % 1.4 % (1.0-4.0); HEMATOCRIT 33.9 % (37.0-47.0); LYMPH # 2.5 10*3/uL (1.3-4.4); LYMPH % 48.9 % (27.0-41.0); MEAN CELL VOLUME 86.3 fl (81.0-99.0); MEAN CORPUSCULAR HGB CONC 32.4 g/dl (33.0-37.0); MEAN PLATELET VOLUME 9.8 fl (9.6-12.3); MONO # 0.3 10*3/uL (0.1-1.0); MONO % 6.3 % (3.0-9.0); NEUT # 2.2 10*3/uL (2.3-7.9); NEUT % 42.6 % (47.0-73.0); PLATELET COUNT AUTOMATED 325 10*3/uL (130-400); RED BLOOD COUNT 3.93 10*6/uL (4.10-5.10); RED CELL DISTRI WIDTH 13.7 % (0-14.5); WHITE BLOOD COUNT 5.1 10*3/uL (4.8-10.8)
[2018-07-21 15:03] LABS: ACT PARTIAL THROMBO TIME 23.1 SECONDS (20.8-31.5); INTERNATIONAL NORM RATIO 0.9 (2.0-3.5)
[2018-07-21 15:09] LABS: ACETAMINOPHEN (TYLENOL) < 5.0 ug/ml (10-30); ALBUMIN 3.2 gm/dl (3.1-4.5); ALKALINE PHOSPHATASE 148 U/L (45-117); BUN 12 mg/dl (7-24); CHLORIDE 108 mmol/L (98-107); CREATININE 0.77 mg/dL (0.55-1.02); ETHYL ALCOHOL < 3.0 mg/dl (<3); SGOT/AST 16 IU/L (3-35); SGPT/ALT 19 U/L (12-78); SODIUM 140 mmol/L (136-145); TOTAL PROTEIN 7.1 gm/dL (6.4-8.2)
[2018-07-21 16:00] VITALS: BP 104/62; BP 111/62
[2018-07-21 16:54] LABS: BILIRUBIN NEGATIVE (NEGATIVE); BLOOD TRACE-INTACT (NEGATIVE); CLARITY CLEAR (CLEAR); COLOR YELLOW (YELLOW); GLUCOSE NEGATIVE (NEGATIVE); KETONE NEGATIVE (NEGATIVE); LEUKO ESTERASE 1+ (NEGATIVE); NITRITE POSITIVE (NEGATIVE); PH 5.5 (5.0-9.0); UROBILINOGEN 0.2 E.U./dl (0.2-1.0)
[2018-07-21 17:02] LABS: URINE AMPHETAMINES < 1000 (1000ng/ml); URINE BARBITURATES < 200 (200ng/ml); URINE BENZODIAZEPINES < 200 (200ng/ml); URINE CANNABINOIDS (THC) < 50 (50ng/ml); URINE COCAINE < 300 (300ng/ml); URINE METHADONE < 300 (300ng/ml); URINE OPIATES < 300 (300ng/ml)
[2018-07-21 17:03] LABS: URINE PHENCYCLIDINE < 25 (25ng/ml)
[2018-07-21 17:06] LABS: BACTERIA 4+; EPITHELIAL CELLS 0-2; RBC 0-2 rbc/hpf (0-2); WBC 16-20 wbc/hpf (0-5)
[2018-07-21] MEDS ORDERED: CYMBALTA60 MG PO (17:23)
[2018-07-21] MEDS ORDERED: HYDROCODONE-AC1 EAC1 PO (17:24)
[2018-07-21] MEDS ORDERED: VITAMIN D50000 UNIT PO (17:28)
[2018-07-21] MEDS ORDERED: TRAZODONE50 MG PO (17:28)
[2018-07-21] MEDS ORDERED: REMERON15 M2 PO (17:29)
[2018-07-21] MEDS ORDERED: IBU800 MG PO (17:29)
[2018-07-21] MEDS ORDERED: NATURE'S BLEND F1 MG PO (17:30)
[2018-07-21] MEDS ORDERED: BUSPAR5 MG PO (17:42)
[2018-07-21] MEDS ORDERED: HYDROXYZINE HCL25 MG PO (17:43)
[2018-07-21] MEDS ORDERED: AMITRIPTYLINE25 MG PO (17:45)
[2018-07-21 20:00] VITALS: BP 129/70
[2018-07-22] VITALS: BP 107/53
[2018-07-22 04:00] VITALS: BP 112/62
[2018-07-22 04:38] LABS: BASO % 0.5 % (0.0-1.0); HEMATOCRIT 31.2 % (37.0-47.0); HEMOGLOBIN 9.8 g/dl (12.0-16.0); LYMPH # 2.2 10*3/uL (1.3-4.4); LYMPH % 54.6 % (27.0-41.0); MEAN CELL VOLUME 88.1 fl (81.0-99.0); MEAN CORPUSCULAR HGB 27.7 pg (27.0-31.0); MEAN CORPUSCULAR HGB CONC 31.4 g/dl (33.0-37.0); MEAN PLATELET VOLUME 9.7 fl (9.6-12.3); MONO # 0.2 10*3/uL (0.1-1.0); MONO % 5.2 % (3.0-9.0); NEUT # 1.6 10*3/uL (2.3-7.9); NEUT % 38.7 % (47.0-73.0); PLATELET COUNT AUTOMATED 278 10*3/uL (130-400); RED BLOOD COUNT 3.54 10*6/uL (4.10-5.10); RED CELL DISTRI WIDTH 13.7 % (0-14.5)
[2018-07-22 05:06] LABS: BUN 14 mg/dl (7-24); CHLORIDE 112 mmol/L (98-107); CREATININE 0.73 mg/dL (0.55-1.02); SODIUM 144 mmol/L (136-145)
[2018-07-22 08:00] VITALS: BP 108/60
[2018-07-22 12:00] VITALS: BP 113/55
[2018-07-22 16:00] VITALS: BP 110/50
[2018-07-22 20:00] VITALS: BP 132/73
[2018-07-23] VITALS: BP 120/70
[2018-07-23 04:00] VITALS: BP 110/54
[2018-07-23 05:03] LABS: BASO % 0.5 % (0.0-1.0); EOS # 0.1 10*3/uL (0.0-0.4); EOS % 3.1 % (1.0-4.0); HEMATOCRIT 32.1 % (37.0-47.0); LYMPH # 2.1 10*3/uL (1.3-4.4); LYMPH % 53.7 % (27.0-41.0); MEAN CORPUSCULAR HGB 27.1 pg (27.0-31.0); MEAN CORPUSCULAR HGB CONC 31.2 g/dl (33.0-37.0); MEAN PLATELET VOLUME 9.6 fl (9.6-12.3); MONO # 0.3 10*3/uL (0.1-1.0); MONO % 7.3 % (3.0-9.0); NEUT # 1.4 10*3/uL (2.3-7.9); NEUT % 35.4 % (47.0-73.0); PLATELET COUNT AUTOMATED 276 10*3/uL (130-400); RED BLOOD COUNT 3.69 10*6/uL (4.10-5.10); RED CELL DISTRI WIDTH 13.7 % (0-14.5); WHITE BLOOD COUNT 3.8 10*3/uL (4.8-10.8)
[2018-07-23 05:31] LABS: BUN 13 mg/dl (7-24); CHLORIDE 108 mmol/L (98-107); CREATININE 0.69 mg/dL (0.55-1.02); POTASSIUM 3.1 mmol/L (3.5-5.1); SODIUM 142 mmol/L (136-145)
[2018-07-23 08:00] VITALS: BP 107/74
[2018-07-23 12:00] VITALS: BP 116/68
[2018-07-23] MEDS ORDERED: CEFUROXIME AXE500 MG PO (15:39)
[2018-07-23] MEDS ORDERED: VISTARIL25 MG PO (16:26)
[2018-07-23] MEDS ORDERED: BUSPAR5 MG PO (16:26)
[2018-07-24] MEDS ORDERED: MIRTAZAPINE15 M2 PO (09:37)
[2018-07-24] MEDS ORDERED: ARIPIPRAZOLE10 MG PO (09:37)
== END 2018-07-23 16:12 | disposition home health service (06) | DRG 918 ==
LOC: ED 14:18 → ICCU 15:03 → EDHOLD 15:03 → ICCU 15:21
PROVIDERS: Nurse Practitioner Family; ADMIT Internal Medicine
DX: T43.212A Poisoning by selective serotonin and norepinephrine reuptake inhibitors, intentional self-harm, initial encounter (principal); F33.2 Major depressive disorder, recurrent severe without psychotic features; T43.592A Poisoning by other antipsychotics and neuroleptics, intentional self-harm, initial encounter; E87.8 Other disorders of electrolyte and fluid balance, not elsewhere classified; E87.6 Hypokalemia; I10 Essential (primary) hypertension; E78.2 Mixed hyperlipidemia; F41.1 Generalized anxiety disorder; I45.81 Long QT syndrome; F51.01 Primary insomnia; Z90.49 Acquired absence of other specified parts of digestive tract; Z98.891 History of uterine scar from previous surgery; Z90.710 Acquired absence of both cervix and uterus; Z79.899 Other long term (current) drug therapy; Z88.5 Allergy status to narcotic agent; Z88.8 Allergy status to other drugs, medicaments and biological substances; Z82.49 Family history of ischemic heart disease and other diseases of the circulatory system; Z82.3 Family history of stroke; Z80.8 Family history of malignant neoplasm of other organs or systems; Y92.89 Other specified places as the place of occurrence of the external cause

== ENCOUNTER 2018-07-23 15:43 | Inpatient (IN) | payer OTHER ==
[~2018-07-23] VITALS: Ht 170.1 cm; Wt 73.9 kg
--- NOTE | ~2018-07-23 | CON ---
[place], [place] REPORT OF CONSULTATION NAME: MAYITO CABRERA UNIT #: [id number] ROOM: 316 DOCTOR: MARINA MOCK MD BIRTHDATE: [birth year] DOS: 07/24/2018 ATTENDING: Dr. Davey Li. HISTORY OF PRESENT ILLNESS: The patient is a 52-year-old female with a past medical history of: 1. Recent suicide attempt. 2. Benign essential hypertension. 3. Mixed hyperlipidemia. 4. Generalized anxiety disorder. 5. Chronic primary insomnia. Patient presently admitted at Behavioral Health Unit after a recent suicide attempt and was kept against her will to leave the hospital because of risk to her life and a pink slip was used on recommendation of Psychiatry. Major depression, recurrent, severe, and dysthymic disorder, being followed by Dr. Li. No chest pain, no shortness of breath. No GI or urinary symptoms. REVIEW OF SYSTEMS: Negative except for above-mentioned problems. FAMILY HISTORY: Noncontributory. PRESENT MEDICATIONS: Remeron, vitamin D, propranolol, ibuprofen, folic acid, Abilify, mirtazapine, Zyprexa as needed. ALLERGIES: KNOWN ALLERGIES TO IODINE, MORPHINE, CODEINE, TORADOL. PHYSICAL EXAMINATION: GENERAL: Alert, oriented x 3, in no visible distress. VITAL SIGNS: Blood pressure 120/81, heart rate of 74 beats per minute, breathing 16 times per minute, temperature 98 degrees Fahrenheit. HEENT AND NECK: Extraocular movements are intact. Sclerae are anicteric. Oral mucosa is moist and clean. No obvious facial weakness. Neck is supple without any lymphadenopathy. No thyromegaly. No JVD. No carotid arterial bruits. LUNGS: Clear to auscultation. No wheezing. No rhonchi. CARDIOVASCULAR SYSTEM: Heart rate is regular in rate and rhythm. S1 and S2 normally audible. No significant murmur or any other abnormal cardiac sounds. ABDOMEN: Soft, nontender. No obvious organomegaly. Bowel sounds are present. No obvious herniation. EXTREMITIES: Without significant cyanosis or edema. Warm to touch. CENTRAL NERVOUS SYSTEM: Alert and oriented x 3. Cranial nerves II-XII are intact. Speech is normal. The patient is able to move all extremities. Normal muscle strength. Deep tendon reflexes are equal on both sides. Plantars were downgoing. IMPRESSION: 1. Major depression, recurrent, severe with dysthymic disorder, now being treated with Remeron and Abilify along with Zyprexa as needed by Dr. Li. She is feeling better and being watched for being suicidal and will be discharged after cleared by Dr. Li, her psychiatrist. The patient is denying any [place], [place] REPORT OF CONSULTATION NAME: MAYITO CABRERA UNIT #: [id number] ROOM: [facility] DOCTOR: MARINA MOCK MD BIRTHDATE: [birth year] suicidal thoughts and the patient to be discharged to home soon by Dr. Li. 2. Benign essential hypertension. Blood pressure is being treated and monitored and controlled. 3. Generalized anxiety disorder, being treated and followed, medications adjusted by Dr. Li. Dr. Li, thank you for asking me to see the patient. MARINA MOCK MD CM:CONSTR:REPORT OF CONSULTATION 1342 07/25/18 0224 interface
--- NOTE | ~2018-07-23 | CON ---
[place], [place] REPORT OF CONSULTATION NAME: MAYITO CABRERA UNIT #: [id number] ROOM: 316 DOCTOR: BISI, PHD ADRIENNE BIRTHDATE: [birth year] DOS: 07/24/2018 HISTORY OF PRESENT ILLNESS: The patient is a 52-year-old female referred by Dr. Li for counseling; at the present time, the patient is on the [facility] at [facility]. She was initially admitted to the ICU after an intentional overdose. She lives with her partner and is on disability. She has a son. She denied alcohol use. She endorsed rare tobacco use and occasional marijuana use. PAST MEDICAL HISTORY: Benign essential hypertension, mixed hyperlipidemia, generalized anxiety disorder, chronic primary insomnia. MEDICATIONS: Vitamin D, Inderal-LA, Motrin, folic acid, Abilify, Remeron, Tylenol, Geodon, Ceftin, Ativan. NEUROLOGIC EXAMINATION: The patient was awake, alert and oriented to person, place and time. Mood was stable and affect was slightly restricted in range. She firmly denied suicidal and homicidal ideation, plan, and intent. She states that she does not want to and that she wants to live for her son and her grandchildren including one that will be born in September. Speech and language are within normal limits conversationally. Thought process was linear and goal directed. Thought content was negative for hallucinations and delusions. Insight and judgment appeared fair. Discussed the patient's trauma history and her concerns that she may have PTSD. She plans to follow up with outpatient treatment at [facility]. DIAGNOSES: Major depressive disorder, recurrent, severe; dysthymic disorder; rule out posttraumatic stress disorder. PLAN: Continue following up with outpatient counseling and medication management. Thank you very much for this consult. Leti Calles, PhD CM:CONSTR:REPORT OF CONSULTATION 1656 07/27/18 0846 interface
--- NOTE | ~2018-07-23 | WRIGHTHP ---
[place], [place] PATIENT HISTORY AND PHYSICAL EXAM NAME: MAYITO CABRERA UNIT #: [id number] ROOM: 316 DOCTOR: LUIS CHATMAN MD BIRTHDATE: [birth year] DOS: 07/24/2018 INITIAL PSYCHIATRIC EVALUATION WELL DISCHARGE SUMMARY CHIEF COMPLAINT: "I am just so depressed, my mom is dying, I don't know how to deal with this." HISTORY OF PRESENT ILLNESS: This is a 52-year-old white female who was initially admitted to the ICU following an intentional overdose attempt. The patient did ingest Ativan, Vistaril and trazodone in an attempt to kill herself. She reports ongoing depression that has been made worse recently by her mom's physical decline to the point where she believes her mom's is eminent. The patient reports a lengthy psychiatric history and has been following with Filiberto Guy and also nurse practitioner Zafar for her psychiatric illness. She has been prescribed a plethora of antidepressants. Most recently, there have been four prescribed at the same time. She reports that they are ineffective and she notes decreased sleep with difficulty falling asleep, sleep continuity disturbance, head stock operator awakening, anergia, anhedonia, hopeless, helpless feelings, crying spells, and inability to cope. The patient was initially admitted to further evaluate her lethality however, it became very evident that the patient's mom is physically deteriorating and her mom's may actually be eminent. During the course of my interview, the patient did report that she would not do anything to hurt herself, that she has a son that she values very deeply and also many grandkids and she would not do anything to hurt them in any way. She does not endorse depression and feels that her meds are not working and would like to have her meds adjusted, but does not feel that she needs inpatient stabilization at this point. PAST MEDICAL HISTORY: Remarkable for allergies to CODEINE, IODINE, TORADOL and MORPHINE. SOCIAL HISTORY: The patient does not drink alcohol, smoke cigarettes or use illicit drugs. STRENGTHS: Good verbal skills, ambulatory. WEAKNESSES: Poor coping skills, long-term psychiatric issues. MENTAL STATUS: She is alert and oriented x 3. Mood does seem to be depressed with anxious overtones. She convincingly denies suicidal thoughts, homicidal thoughts, or self-injurious thoughts. There is no hypomania or lyndon. There are no psychotic symptoms. Memory is intact. DIAGNOSES: Major depression, recurrent, severe and dysthymic disorder. PLAN: I did simplify her drug regimen, discontinuing the Ambien, the Lexapro, the Cymbalta, the trazodone, the BuSpar and the hydroxyzine and the amitriptyline. I did maintain her on Remeron 15 mg at bedtime and more realistically augmented with Abilify 10. The patient is going to be referred to the [facility] and is going to be discharged because her mom's is eminent. [place], [place] PATIENT HISTORY AND PHYSICAL EXAM NAME: MAYITO CABRERA UNIT #: [id number] ROOM: [facility] DOCTOR: LUIS CHATMAN MD BIRTHDATE: [birth year] She convincingly denies suicidal thoughts or plan and I do believe that it would be more detrimental to keep her here should her mom pass. The patient will also see Dr. Leti Calles, psychologist, to start a therapeutic relationship and increase her support network. The patient was discharged then with scripts being sent to [email or web address]. LUIS CHATMAN MD CM:HISPHYS:PATIENT HISTORY AND PHYSICAL EXAMINATION [id number] [id number] LUIS CHATMAN MD 07/24/18 1324 interface
[~2018-07-23 15:43] MED LIST changes: +AMITRIPTYLINE25 MG PO; +BUSPAR5 MG PO; +CEFUROXIME AXE500 MG PO; +CYMBALTA60 MG PO; +HYDROCODONE-AC1 EAC1 PO; +HYDROXYZINE HCL25 MG PO; +NATURE'S BLEND F1 MG PO; +REMERON15 M2 PO; +VITAMIN D50000 UNIT PO
--- NOTE | 2018-07-23 16:13 | NUR ---
MAYITO CABRERA a 52 year old F admitted via wheel chair from the ADMITTING as a emergency 72 hr. hold admission. Arrived on unit at 1613. ALLERGIES: IODINE, CODEINE, TORDAL,MORPHINE. Vital signs are: 98.6-104-18 136/90. The client signed the following forms with stated understanding: Authorization For The Release of Medical Information, Clothing List, Consent to Voluntary Admission and Hospitalization, Consent and Release Forms/Receipt of Rights, Acknowledgement of Advance Directive Information, Behavioral Health Consent Form, and Informed Consent of Medications. Admitted under the services of Dr. LURDES NOBLE,[facility]. A search was conducted and hazardous articles were removed. Client was oriented to the unit. DAMIÁN YOUSSEF
[2018-07-23] MEDS ORDERED: VISTARIL25 MG PO (16:26)
[2018-07-23] MEDS ORDERED: BUSPAR5 MG PO (16:26)
[2018-07-23 16:27] VITALS: BP 136/90
--- NOTE | 2018-07-23 16:31 | NUR ---
SPOKE WITH DR. MOCK AT [phone] RE: PT ADMISSION AND MEDICAL MEDS NEEDING COMPLETED. MEDS REVIEWED WITH AND ORDERS RECEIVED TO CONTINUE MEDS. ALSO ADVSIED THAT PT DID NOT RECEIVE KDUR 1X ORDER PRIOR TO TRANSFER FROM ICU AND VERBAL ORDERS RECEIVED TO PLACE A 1X ORDER. CONVERSATION WITTNESSED BY 2ND RN DAMIÁN YOUSSEF.
--- NOTE | 2018-07-23 16:52 | NUR ---
MESSAGE LEFT FOR DR. CHATMAN TO RETURN CALL RE: PT SUICIDE SCORE. WILL AWAIT A RETURN CALL.
--- NOTE | 2018-07-23 17:45 | NUR ---
SPOKE WITH DR. CHATMAN, ADVISED OF PT SUICIDE SCORE OF 30 AND PT IS IN ROOM 316 A PRIVATE ROOM, PT HAS NO PLAN FOR SUICIDE AT THIS TIME. PER DR. CHATMAN NO NEW ORDERS AT THIS TIME, CONTINUE Q15 SAFETY CHECKS.
[2018-07-23 18:30] VITALS: BP 137/83
--- NOTE | 2018-07-23 18:30 | NUR ---
PATIENT'S BP SLIGHTLY EVELATED ON ADMISSION, RECHECK AFTER ASSESSMENT 137/83, PULSE 104.
[2018-07-23 20:00] VITALS: BP 115/67
--- NOTE | 2018-07-23 23:25 | NUR ---
PATIENT ALERT AND ORIENTED. PATIENT SLOW TO PROCESS. PATIENT WITH NO SHORT TERM OR [facility] MEMORY DEFICITS. NO RESPIRATORY DISTRESS NOTED. PATIENT WITH NO SUICIDAL OR HOMICIDAL IDEATIONS. PATIENT WITH NO HALLUCINATIONS OR DELUSIONS. PATIENT THOUGHT PROCESS IS ORGANIZED, GOAL DIRECTED, AND PREOCCUPIED WITH PEERS IN DINING AREA. PATIENT INTRUSIVE WITH PEERS AT TIMES AND STATING "I'M JUST TRYING TO HELP". PATIENT MEDICATED WITH CEFTIN FOR +UTI. NO ADVERSE REACTION. NO COMPLAINT OF DYSURIA AT THIS TIME. PATIENT MEDICATION COMPLIANT. PATIENT PACING BACK IN FORTH IN HALLWAY INTERMITTENTLY THROUGHOUT SHIFT. PATIENT CONTINENT OF BOWEL AND BLADDER. PATIENT WITH GOOD APPETITE. Q 15 MINUTE CHECKS MAINTAINED. SEE [facility] FLOW SHEET FOR SPECIFIC MONITORING
--- NOTE | 2018-07-23 23:51 | NUR ---
24 HR chart check completed.
--- NOTE | 2018-07-24 03:00 | NUR ---
PATIENT COMPLAINT OF HEADACHE. PATIENT MEDICATED WITH TYLENOL 650MG. MEDICATION WITH EFFECTIVE RESULTS AT THIS TIME
--- NOTE | 2018-07-24 06:01 | NUR ---
PATIENT SLEPT 6-7 HOURS OF INTERRUPTED SLEEP THROUGHOUT SHIFT. Q 15 MINUTE CHECKS MAINTAINED
[2018-07-24 06:41] LABS: BASO % 0.6 % (0.0-1.0); EOS # 0.1 10*3/uL (0.0-0.4); EOS % 2.6 % (1.0-4.0); HEMATOCRIT 36.2 % (37.0-47.0); HEMOGLOBIN 11.8 g/dl (12.0-16.0); LYMPH # 2.2 10*3/uL (1.3-4.4); LYMPH % 43.1 % (27.0-41.0); MEAN CELL VOLUME 86.2 fl (81.0-99.0); MEAN CORPUSCULAR HGB 28.1 pg (27.0-31.0); MEAN CORPUSCULAR HGB CONC 32.6 g/dl (33.0-37.0); MEAN PLATELET VOLUME 9.8 fl (9.6-12.3); MONO # 0.2 10*3/uL (0.1-1.0); MONO % 4.8 % (3.0-9.0); NEUT # 2.5 10*3/uL (2.3-7.9); NEUT % 48.9 % (47.0-73.0); PLATELET COUNT AUTOMATED 350 10*3/uL (130-400); RED CELL DISTRI WIDTH 13.7 % (0-14.5)
--- NOTE | 2018-07-24 06:52 | NUR ---
PATIENT MEDICATED WITH TYLENOL 650MG FOR ELEVATED TEMPERATURE. RECHECKED TEMPERATURE WITH RESULTS OF 100.2 AT THIS TIME.
[2018-07-24 07:13] LABS: ALBUMIN 3.3 gm/dl (3.1-4.5); ALKALINE PHOSPHATASE 149 U/L (45-117); BUN 9 mg/dl (7-24); CHLORIDE 106 mmol/L (98-107); CHOLESTEROL 239 mg/dL (<200); CREATININE 0.65 mg/dL (0.55-1.02); HDL CHOLESTEROL 40 mg/dl (40-60); LDL CHOLESTEROL 123 mg/dL (9-159); POTASSIUM 3.6 mmol/L (3.5-5.1); SGOT/AST 14 IU/L (3-35); SGPT/ALT 19 U/L (12-78); SODIUM 140 mmol/L (136-145); TOTAL PROTEIN 7.3 gm/dL (6.4-8.2); TRIGLYCERIDES 378 mg/dl (<150); VLDL CHOLESTEROL 76 mg/dL (6-40)
[2018-07-24 07:17] VITALS: BP 120/81
--- NOTE | 2018-07-24 08:15 | NUR ---
Treatment Plan meeting with Dr. Li RN, AT, SW and Dovetailer. Plan for discharge today. Pt. to return home.
[2018-07-24 08:41] LABS: VITAMIN D, 25-HYDROXY 56.9 ng/mL (30-100)
--- NOTE | 2018-07-24 08:50 | NUR ---
PT SITTING IN DAY ROOM GIVING HER MEAL ORDERS TO DIETARY EMPLOYEE. PT CALM AND COOPERATIVE. RESPS EASY AND EVEN ON ROOM AIR. NO ACUTE DISTRESS NOTED.
[2018-07-24] MEDS ORDERED: MIRTAZAPINE15 M2 PO (09:37)
[2018-07-24] MEDS ORDERED: ARIPIPRAZOLE10 MG PO (09:37)
--- NOTE | 2018-07-24 09:41 | NUR ---
PT ALERT AND ORIENTED X4, MEMORY INTACT. PT STATES SHE IS READY AND WANTS TO GO HOME. FUTURE FOCUSED THINKING NOTED. PT STATES SHE WANTS TO GO HOME AND SPEND TIME WITH HER FAMILY AND HER MOTHER BEFORE HER MOTHER PASSES AWAY. PT STATES SHE MADE A MISTAKE AND WILL NEVER DO ANYTHING LIKE THAT OR TRY TO HURT HERSELF AGAIN. PT WILLINGLY VERBALLY CONTRACTED FOR SAFETY. PT ABLE TO VERBALIZE 3 PEOPLE SHE CAN CALL IF SHE IS FEELING UPSET AND OVERWHELMED ONCE DISCHARGED. PT STATES SHE WILL CALL 911 IF SHE EVER FEELS LIKE SHE WANTS TO HURT OR KILL HERSELF. PLEASANTLY COOPERATIVE WITH THIS RN DURING ASSESSMENT. MEDICATION EDUCATION PROVIDED WITH GOOD EFFECT. PT MEDICATION COMPLIANT WITHOUT DIFFICULTY. AMBULATES INDEPENDENTLY WITH SLOW AND STEADY GAIT. APPETITE GOOD FOR BREAKFAST. STATES SHE SLEPT WELL LAST NIGHT. SITTING IN DAY ROOM COMPLETING CROSSWORD PUZZLES AT THIS TIME. PER Q15 MIN OBSERVATION CHECKS STILL APPROPRIATE.
--- NOTE | 2018-07-24 14:10 | NUR ---
PSA completed with collateral information from partner and sister. Pt indicated she wanted to see Cristina as a therapist and when attempts to schedule were made this science writer was notified that pt already has a therapist so pt would have to make that request of the office prior to scheduling with Cristina. Pt stated she understood the process. Pt declined [facility] referral. corporate event planner stated pt wanted [facility] rather than [facility] which is the place and pt discussed earlier in the day with this science writer. Dr. Calles saw pt and pt then decided she wanted to see her on an outpatient basis. Pt was informed that tomorrow at her appt with med management she can discuss her plan to change providers. Pt agreed and stated she would call Dr. Calles to schedule. Pt also provided reassurance that her mother is not actively dying by speaking with the [facility]pc, her mom and her sister. Pt completed and reviewed safety plan. Encouraged couples counseling for issues between her partner and pt. Pt offered support and reassurance and pt denied SI.
--- NOTE | 2018-07-24 14:32 | NUR ---
CLINICALS FAXED TO [phone].
--- NOTE | 2018-07-24 15:44 | NUR ---
Nursing screen received and chart review completed. Patient admitted [facility] and is now being discharged to home w/ family 07/24/18. Yue España OTR/L
--- NOTE | 2018-07-24 16:19 | NUR ---
MADE AWARE OF PLANNED DISCHARGE, STATES OK TO CONTINUE VITAMIN D, INDERAL, FOLIC ACID, MOTRIN, AND CEFTIN ATB. PER , PT CAN OBTAIN PRESCRIPTIONS FOR NEW MEDICATIONS IN AM IN OFFICE.
--- NOTE | 2018-07-24 16:34 | NUR ---
Discharge instructions reviewed with patient. Patient receptive and verbalizes understanding. Follow-up care arranged. Written instructions given to patient.
--- NOTE | 2018-07-24 17:42 | NUR ---
PT DISCHARGE TO HOME AT THIS TIME IN CARE OF DOMESTIC PARTNER VIA PRIVATE VEHICLE. ALL BELONGINGS AND LOCK BOX ITEMS SENT WITH PT.
== END 2018-07-24 17:43 | disposition home or self-care (01) | DRG 885 ==
LOC: 3N 15:43
PROVIDERS: ADMIT Psychiatry & Neurology Psychiatry
DX: F33.2 Major depressive disorder, recurrent severe without psychotic features (principal); F34.1 Dysthymic disorder; I10 Essential (primary) hypertension; E78.2 Mixed hyperlipidemia; F41.1 Generalized anxiety disorder; F51.04 Psychophysiologic insomnia; Z88.5 Allergy status to narcotic agent; Z91.048 Other nonmedicinal substance allergy status; Z91.5 Personal history of self-harm

== ENCOUNTER 2018-09-02 18:41 | Emergency (ER) | payer OTHER ==
[~2018-09-02] VITALS: Ht 172.7 cm; Wt 77.6 kg
[~2018-09-02 18:41] MED LIST changes: +ARIPIPRAZOLE10 MG PO; +MIRTAZAPINE15 M2 PO; +VISTARIL25 MG PO
== END 2018-09-02 20:21 | disposition home or self-care (01) ==
LOC: ED 18:41
DX: M25.512 Pain in left shoulder (principal); F17.200 Nicotine dependence, unspecified, uncomplicated; Z88.5 Allergy status to narcotic agent; Z91.041 Radiographic dye allergy status; Z88.6 Allergy status to analgesic agent; Z79.2 Long term (current) use of antibiotics; Z79.899 Other long term (current) drug therapy; Z90.710 Acquired absence of both cervix and uterus; Z90.49 Acquired absence of other specified parts of digestive tract; V89.2XXA Person injured in unspecified motor-vehicle accident, traffic, initial encounter; Y93.89 Activity, other specified; Y92.488 Other paved roadways as the place of occurrence of the external cause; Y99.8 Other external cause status

== ENCOUNTER 2018-11-24 10:32 | Emergency (ER) | payer OTHER ==
[~2018-11-24] VITALS: Ht 170.1 cm; Wt 77.1 kg
[2018-11-24] MEDS ORDERED: NORCO 10-325 T1 EACH PO (12:39)
== END 2018-11-24 12:47 | disposition home or self-care (01) ==
LOC: ED 10:32
DX: S22.22XA Fracture of body of sternum, initial encounter for closed fracture (principal); R07.81 Pleurodynia; F17.200 Nicotine dependence, unspecified, uncomplicated; Z79.899 Other long term (current) drug therapy; Z88.6 Allergy status to analgesic agent; X58.XXXA Exposure to other specified factors, initial encounter; Y93.89 Activity, other specified; Y92.89 Other specified places as the place of occurrence of the external cause; Y99.8 Other external cause status

== ENCOUNTER 2019-01-11 11:53 | Emergency (ER) | payer OTHER ==
[~2019-01-11] VITALS: Ht 170.1 cm; Wt 80.7 kg
--- NOTE | ~2019-01-11 | EKG ---
[place], [place] ELECTROCARDIOGRAM REPORT NAME: MAYITO CABRERA UNIT #: [id number] ROOM: DOCTOR: KAYLIE DRAFT REPORT BIRTHDATE: [birth year] [facility] Test Date: 2019-01-11 Test Time: 12:25:03 Pat Name: MAYITO CABRERA Department: ER Room: 2 Gender: F Material Damage Adjuster: EKG.VT : 1965 Requested By: KERLINE KOHLI Order Number: [id number] Reading MD: Taj Avendano MD Measurements Intervals [place] Rate: 66 P: 22 [place]: 186 QRS: 2 QRSD: 89 T: 8 QT: 428 QTc: 449 Interpretive Statements Poor data quality with artifact Sinus rhythm Multiple ventricular premature complexes Low voltage, precordial leads Probable anteroseptal infarct, old Electronically Signed On 01-12-2019 13:27:44 PDT by Taj Avendano MD CM:EKGRPT:ELECTROCARDIOGRAM REPORT [id number] KERLINE WHATLEY DRAFT REPORT KERLINE KOHLI DO
[2019-01-11 12:44] LABS: BASO % 0.9 % (0.0-1.0); EOS # 0.1 10*3/uL (0.0-0.4); EOS % 1.6 % (1.0-4.0); HEMATOCRIT 32.4 % (37.0-47.0); HEMOGLOBIN 9.5 g/dl (12.0-16.0); LYMPH # 2.2 10*3/uL (1.3-4.4); LYMPH % 51.7 % (27.0-41.0); MEAN CELL VOLUME 83.5 fl (81.0-99.0); MEAN CORPUSCULAR HGB 24.5 pg (27.0-31.0); MEAN CORPUSCULAR HGB CONC 29.3 g/dl (33.0-37.0); MEAN PLATELET VOLUME 9.9 fl (9.6-12.3); MONO # 0.3 10*3/uL (0.1-1.0); MONO % 7.7 % (3.0-9.0); NEUT # 1.6 10*3/uL (2.3-7.9); NEUT % 37.9 % (47.0-73.0); PLATELET COUNT AUTOMATED 417 10*3/uL (130-400); RED BLOOD COUNT 3.88 10*6/uL (4.10-5.10); RED CELL DISTRI WIDTH 15.2 % (0-14.5); WHITE BLOOD COUNT 4.3 10*3/uL (4.8-10.8)
[2019-01-11 12:55] LABS: ACT PARTIAL THROMBO TIME 24.9 SECONDS (20.0-32.1); INTERNATIONAL NORM RATIO 0.9 (2.0-3.5)
[2019-01-11 13:01] LABS: ALBUMIN 3.2 gm/dl (3.1-4.5); ALKALINE PHOSPHATASE 121 U/L (45-117); BUN 12 mg/dl (7-24); CHLORIDE 110 mmol/L (98-107); CREATININE 0.72 mg/dL (0.55-1.02); POTASSIUM 3.3 mmol/L (3.5-5.1); SGOT/AST 8 IU/L (3-35); SGPT/ALT 11 U/L (12-78); SODIUM 140 mmol/L (136-145)
[2019-01-11 13:02] LABS: TROPONIN I < 0.015 ng/ml (<0.045)
== END 2019-01-11 16:19 | disposition short-term general hospital (02) ==
LOC: ED 11:53
PROVIDERS: Internal Medicine
DX: I63.9 Cerebral infarction, unspecified (principal); R11.0 Nausea; G89.29 Other chronic pain; Z90.710 Acquired absence of both cervix and uterus; Z90.49 Acquired absence of other specified parts of digestive tract; Z88.5 Allergy status to narcotic agent; Z88.6 Allergy status to analgesic agent; Z91.041 Radiographic dye allergy status; Z79.899 Other long term (current) drug therapy; Z79.2 Long term (current) use of antibiotics

== ENCOUNTER 2019-06-21 15:49 | Emergency (ER) | payer OTHER ==
[~2019-06-21] VITALS: Ht 170.1 cm; Wt 81.6 kg
[2019-06-21] MEDS ORDERED: FLONASE ALLERG9.9 ML NAS (16:36)
[2019-06-21] MEDS ORDERED: CLARITIN10 MG PO (16:36)
== END 2019-06-21 17:03 | disposition home or self-care (01) ==
LOC: ED 15:49
DX: H65.92 Unspecified nonsuppurative otitis media, left ear (principal); R19.7 Diarrhea, unspecified; J02.9 Acute pharyngitis, unspecified; F41.9 Anxiety disorder, unspecified; F32.9 Major depressive disorder, single episode, unspecified; I25.10 Atherosclerotic heart disease of native coronary artery without angina pectoris; E78.00 Pure hypercholesterolemia, unspecified; Z88.5 Allergy status to narcotic agent; Z88.8 Allergy status to other drugs, medicaments and biological substances; Z91.041 Radiographic dye allergy status; Z79.899 Other long term (current) drug therapy; Z90.49 Acquired absence of other specified parts of digestive tract; Z90.710 Acquired absence of both cervix and uterus

== ENCOUNTER 2019-08-08 14:07 | Emergency (ER) | payer OTHER ==
[~2019-08-08] VITALS: Ht 170.1 cm; Wt 81.6 kg
[~2019-08-08 14:07] MED LIST changes: +FLONASE ALLERG9.9 ML NAS
[2019-08-08] MEDS ORDERED: PREDNISONE20 M1 PO (14:45)
== END 2019-08-08 15:17 | disposition home or self-care (01) ==
LOC: ED 14:07
DX: L30.9 Dermatitis, unspecified (principal); I25.10 Atherosclerotic heart disease of native coronary artery without angina pectoris; E78.00 Pure hypercholesterolemia, unspecified; Z88.5 Allergy status to narcotic agent; Z91.041 Radiographic dye allergy status; Z88.6 Allergy status to analgesic agent; Z79.2 Long term (current) use of antibiotics; Z79.899 Other long term (current) drug therapy; Z90.710 Acquired absence of both cervix and uterus; Z90.49 Acquired absence of other specified parts of digestive tract; Z98.61 Coronary angioplasty status; Z87.891 Personal history of nicotine dependence

== ENCOUNTER → 2019-10-01 | Outpatient (CLI) | payer OTHER | END | disposition home or self-care (01) | LOC: RAD 12:44 | DX: R05 Cough (principal) ==

== ENCOUNTER → 2019-11-06 | Outpatient (CLI) | payer OTHER ==
[2019-11-06 12:36] LABS: ALBUMIN 3.4 gm/dl (3.1-4.5); ALKALINE PHOSPHATASE 138 U/L (45-117); BUN 9 mg/dl (7-24); CHLORIDE 111 mmol/L (98-107); CHOLESTEROL 243 mg/dL (<200); CREATININE 0.81 mg/dL (0.55-1.02); HDL CHOLESTEROL 41 mg/dl (40-60); LDL CHOLESTEROL 141 mg/dL (9-159); POTASSIUM 3.2 mmol/L (3.5-5.1); SGOT/AST 14 IU/L (3-35); SGPT/ALT 21 U/L (12-78); SODIUM 139 mmol/L (136-145); TOTAL PROTEIN 7.5 gm/dL (6.4-8.2); TRIGLYCERIDES 304 mg/dl (<150); VLDL CHOLESTEROL 61 mg/dL (6-40)
[2019-11-06 12:41] LABS: THYROID STIM HORMONE (HS) 0.895 uIU/ml (0.358-4.75)
== END | disposition home or self-care (01) ==
LOC: LAB 11:47
PROVIDERS: Family Medicine
DX: N39.0 Urinary tract infection, site not specified (principal); R53.83 Other fatigue; E78.00 Pure hypercholesterolemia, unspecified; E55.9 Vitamin D deficiency, unspecified; R25.1 Tremor, unspecified; G47.00 Insomnia, unspecified; F41.1 Generalized anxiety disorder; E74.00 Glycogen storage disease, unspecified

== ENCOUNTER 2019-12-04 12:39 | Emergency (ER) | payer OTHER ==
[~2019-12-04] VITALS: Ht 170.1 cm; Wt 79.4 kg
[2019-12-04] MEDS ORDERED: CIPRODEX 0.3%-7.5 ML OT (13:05)
== END 2019-12-04 13:17 | disposition home or self-care (01) ==
LOC: ED 12:39
DX: H60.92 Unspecified otitis externa, left ear (principal); I25.10 Atherosclerotic heart disease of native coronary artery without angina pectoris; E78.00 Pure hypercholesterolemia, unspecified; Z79.899 Other long term (current) drug therapy; Z88.6 Allergy status to analgesic agent

== ENCOUNTER → 2019-12-16 | Outpatient (CLI) | payer OTHER ==
[~2019-12-16] MED LIST changes: +CIPRODEX 0.3%-7.5 ML OT; +ZOLPIDEM10 MG PO
[2019-12-16 17:58] LABS: HEMATOCRIT 29.2 % (37.0-47.0); MEAN CELL VOLUME 73.6 fl (81.0-99.0); MEAN CORPUSCULAR HGB 19.6 pg (27.0-31.0); MEAN CORPUSCULAR HGB CONC 26.7 g/dl (33.0-37.0); MEAN PLATELET VOLUME 10.2 fl (9.6-12.3); RED BLOOD COUNT 3.97 10*6/uL (4.10-5.10); RED CELL DISTRI WIDTH 17.8 % (0-14.5); WHITE BLOOD COUNT 6.7 10*3/uL (4.8-10.8)
[2019-12-16 18:15] LABS: BUN 15 mg/dl (7-24); CHLORIDE 109 mmol/L (98-107); CREATININE 0.79 mg/dL (0.55-1.02); IRON 16 ug/dL (50-170); POTASSIUM 3.1 mmol/L (3.5-5.1); SODIUM 139 mmol/L (136-145); TOTAL IRON BINDING CAPACITY 508 ug/dl (250-450)
== END | disposition home or self-care (01) ==
LOC: LAB 17:00
PROVIDERS: Family Medicine
DX: E87.6 Hypokalemia (principal); Z86.2 Personal history of diseases of the blood and blood-forming organs and certain disorders involving the immune mechanism

== ENCOUNTER 2019-12-17 15:50 | Inpatient (IN) | payer OTHER ==
[2019-12-17] VITALS (13 sets, daily range): BP systolic 82–133; BP diastolic 39–77
[~2019-12-17] VITALS: Ht 170.1 cm; Wt 81.6 kg
[~2019-12-17 15:50] MED LIST changes: -ZOLPIDEM10 MG PO
[2019-12-17 16:52] LABS: BASO % 0.2 % (0.0-1.0); EOS % 0.4 % (1.0-4.0); HEMATOCRIT 26.6 % (37.0-47.0); LYMPH # 2.2 10*3/uL (1.3-4.4); MEAN CELL VOLUME 73.3 fl (81.0-99.0); MEAN CORPUSCULAR HGB 19.6 pg (27.0-31.0); MEAN CORPUSCULAR HGB CONC 26.7 g/dl (33.0-37.0); MEAN PLATELET VOLUME 9.7 fl (9.6-12.3); MONO # 0.3 10*3/uL (0.1-1.0); NEUT % 45.2 % (47.0-73.0); PLATELET COUNT AUTOMATED 505 10*3/uL (130-400); RED BLOOD COUNT 3.63 10*6/uL (4.10-5.10); RED CELL DISTRI WIDTH 17.5 % (0-14.5); WHITE BLOOD COUNT 4.5 10*3/uL (4.8-10.8)
[2019-12-17 17:09] LABS: ALBUMIN 3.3 gm/dl (3.1-4.5); ALKALINE PHOSPHATASE 137 U/L (45-117); BUN 14 mg/dl (7-24); CHLORIDE 109 mmol/L (98-107); CREATININE 0.79 mg/dL (0.55-1.02); POTASSIUM 3.2 mmol/L (3.5-5.1); SGOT/AST 11 IU/L (3-35); SGPT/ALT 11 U/L (12-78); SODIUM 140 mmol/L (136-145); TOTAL PROTEIN 7.1 gm/dL (6.4-8.2)
--- NOTE | 2019-12-17 17:26 | NUR ---
THE PATIENT WAS ASKED BY NATALIA GUTIERREZ AND MYSELF AND SHE DENIES BEING ALLERGIC TO IODINE.
--- NOTE | 2019-12-17 19:50 | NUR ---
A 54, admitted to 4E, under the services of SHONNA Nogueira MD with a diagnosis of ANEMIA, LOW SERUM IRON. Chief complaint is LAB TEST REQUEST. Patient arrived via stretcher from ER. Monitor applied. Initial assessment completed. Vital signs taken and recorded. SHONNA NOGUEIRA MD notified of admission to the unit. Orders received. See assessment for past medical history, medications and allergies. Patient and/or family oriented to unit. [facility] visitation policy reviewed. Clothing/patient valuable form completed. KAYKAY CAI
[2019-12-17] MEDS ORDERED: ZOLPIDEM10 MG PO (20:03)
--- NOTE | 2019-12-17 20:35 | NUR ---
CALLED REGARDING ADMISSION ORDERS. NEW ORDERS RECEIVED.
--- NOTE | 2019-12-17 20:41 | NUR ---
SPOKE TO REGARDING CONSULT. DISCUSSED ADMITTING DX, LABS, MEDICATION ORDERS, BLOOD TRANSFUSION, AND CT IMAGING RESULTS. STATES PT CAN HAVE CLEAR LIQUID DIET AND HE WILL SEE HER TOMORROW. STATES SHE WILL PROBABLY HAVE EGD/COLO ON MONDAY. ALSO DISCUSSED PO NORCO ORDER RECEIVED FROM . PT IS ALLERGIC TO CODEINE AND MORPHINE. DISCUSSED PT HAVING ABDOMINAL PAIN ON R SIDE THAT SHE STATES IS SHARP, INTERMITTENT PAIN RATED 6/10. STATES THIS HAS BEEN ON & OFF FOR PAST FEW DAYS. INSTRUCTED TO ORDER TYLENOL 650 QID PRN.
--- NOTE | 2019-12-17 21:11 | NUR ---
BLOOD TRANSFUSION COMPLETE, PATIENT TOLERATED WELL. LINE FLUSHED. CALL LIGHT IS WITHIN REACH. WILL CONTINUE TO MONITOR.
--- NOTE | 2019-12-17 21:45 | NUR ---
UNABLE TO DOCUMENT POST TRANSUSION VITAL SIGNS IN TAR. T-97.5 R-18 P-70 BP-133/66 SPO2-100%. CHARTED IN INTERVENTION SCREEN.
[2019-12-18] VITALS: BP 131/64
[2019-12-18 06:45] LABS: BUN 12 mg/dl (7-24); CHLORIDE 116 mmol/L (98-107); POTASSIUM 3.6 mmol/L (3.5-5.1); SODIUM 144 mmol/L (136-145)
[2019-12-18 07:00] LABS: BASO % 0.7 % (0.0-1.0); EOS % 0.9 % (1.0-4.0); HEMATOCRIT 30.5 % (37.0-47.0); LYMPH # 2.2 10*3/uL (1.3-4.4); LYMPH % 49.5 % (27.0-41.0); MEAN CELL VOLUME 75.5 fl (81.0-99.0); MEAN CORPUSCULAR HGB 21.5 pg (27.0-31.0); MEAN CORPUSCULAR HGB CONC 28.5 g/dl (33.0-37.0); MEAN PLATELET VOLUME 9.8 fl (9.6-12.3); MONO # 0.3 10*3/uL (0.1-1.0); MONO % 6.3 % (3.0-9.0); NEUT # 1.9 10*3/uL (2.3-7.9); NEUT % 42.4 % (47.0-73.0); PLATELET COUNT AUTOMATED 490 10*3/uL (130-400); RED BLOOD COUNT 4.04 10*6/uL (4.10-5.10); RED CELL DISTRI WIDTH 19.2 % (0-14.5); WHITE BLOOD COUNT 4.4 10*3/uL (4.8-10.8)
--- NOTE | 2019-12-18 09:20 | NUR ---
PT RESTING IN BED. RESP-EASY AND REGULAR. IVF INFUSING WITH NO PROBLEM. NO C/O AT THIS TIME. CALL LIGHT IN REACH. SEE SHIFT ASSESSMENT.
--- NOTE | 2019-12-18 10:00 | NUR ---
TOLERATED MEDICATIONS. NO C/O AT THIS TIME. CALL LIGHT IN REACH.
--- NOTE | 2019-12-18 10:40 | NUR ---
Local Driver in to talk to patient. Patient states lives at home with her partner. There are 15 steps in the home. Physician: Dr. Johnson Elise [facility]: [facility] Home health services: none Patient's level of ADLs: INDEPENDENT Patient has working utilities: yes DME: none Follow-up physician's appointment after d/c: she prefers to make her own follow up appt after discharge Does patient want to access PORTAL?: no Discharge plan discussed with patient. She lives at home with her partner. She is independent in her ADLs and ambulation. Discussed home health care services and she denies any home needs at this time. When medically stable she will be discharged to home. She states her brother will provide transportation on discharge. APRIL GIRARD
[2019-12-18 12:00] VITALS: BP 135/73
--- NOTE | 2019-12-18 13:45 | NUR ---
PT RESTING IN BED. TOLERATING PREP FOR COLO TOMORROW. NO C/O AT THIS TIME. CALL LIGHT IN REACH.
[2019-12-18 16:00] VITALS: BP 126/66
--- NOTE | 2019-12-18 16:00 | NUR ---
RESTING IN BED. CALL LIGHT IN REACH. NO C/O AT THIS TIME.
--- NOTE | 2019-12-18 19:00 | NUR ---
RESTING IN BED. IVF INFUSING WITH NO PROBLEM. CALL LIGHT IN REACH.
[2019-12-18 20:00] VITALS: BP 121/71
--- NOTE | 2019-12-18 20:48 | NUR ---
CALLED. DR. FINLEY MADE AWARE ATTEMPTED SEVERAL TIMES TO GET PT TO TAKE GOLYTLEY. SHE ONLY DRANK 2 GLASSES. STATES SHE IS UNABLE TO DRINK ANYMORE IT MAKING HER SICK. ORDERS TAKEN AND REVIEWED.
--- NOTE | 2019-12-18 21:38 | NUR ---
PT TOLERATED ENEMA WITH NO PROBLEM. PT UP TO BATHROOM. REFUSED AMBIEN FOR THIS EVENING BECAUSE OF PREP AND WILL BE UP ALL NIGHT PER PT. CALL LIGHT IN REACH.
--- NOTE | 2019-12-18 22:20 | NUR ---
PT RESTING IN BED. STATES SHE DRANK ONE BOTTLE OF MAG CITRATE PT VERY NAUSIATED AND SHE THREW SOME OF IT UP PER PT. GAVE PT 2ND BOTLE SHE STATES SHE IS GONNA TRY TO SIP ON IT. CALL LIGHT IN REACH.
--- NOTE | 2019-12-18 23:00 | NUR ---
ASSUMED CARE FOR THIS PT AT THIS TIME. PT INCONTINENT OF LIQUID BROWN STOOL. BED LINENS AND GOWN CHANGED. PT C/O NAUSEA. PT ENCOURAGED TO DRINK MAG CITRATE SLOWLY TO PREVENT N/V. CALL LIGHT IN REACH.
[2019-12-19] VITALS (7 sets, daily range): BP systolic 119–136; BP diastolic 66–77
--- NOTE | 2019-12-19 01:06 | NUR ---
DR. EVANS NOTIFIED OF PT'S CONTINUED EPISODES OF N/V D/T COLO PREP. ZOFRAN ORDERS RCVD.
--- NOTE | 2019-12-19 01:41 | NUR ---
PT MEDICATED W/IVP ZOFRAN FOR C/O N/V. PT SHIVERING AND C/O FEELING COLD. WARM BLANKET PLACED OVER PT AND HEAT TURNED UP IN ROOM. CALL LIGHT IN REACH.
[2019-12-19] MEDS ORDERED: PROTONIX40 MG PO (06:38)
[2019-12-19] MEDS ORDERED: Ferrex 150150 MG PO (06:38)
[2019-12-19 06:45] LABS: BASO % 0.4 % (0.0-1.0); EOS % 0.6 % (1.0-4.0); HEMATOCRIT 31.9 % (37.0-47.0); LYMPH # 1.9 10*3/uL (1.3-4.4); LYMPH % 38.9 % (27.0-41.0); MEAN CORPUSCULAR HGB 21.7 pg (27.0-31.0); MEAN CORPUSCULAR HGB CONC 28.5 g/dl (33.0-37.0); MONO # 0.3 10*3/uL (0.1-1.0); MONO % 5.9 % (3.0-9.0); NEUT # 2.6 10*3/uL (2.3-7.9); NEUT % 54.2 % (47.0-73.0); PLATELET COUNT AUTOMATED 518 10*3/uL (130-400); RED CELL DISTRI WIDTH 19.7 % (0-14.5); WHITE BLOOD COUNT 4.8 10*3/uL (4.8-10.8)
[2019-12-19 07:01] LABS: BUN 9 mg/dl (7-24); CHLORIDE 112 mmol/L (98-107); POTASSIUM 3.1 mmol/L (3.5-5.1); SODIUM 141 mmol/L (136-145)
--- NOTE | 2019-12-19 08:20 | NUR ---
PT RESTING IN BED. RESP-EASY AND REGULAR. IVF INFUSING WITH NO PROBLEM. NO C/O AT THIS TIME. CALL LIGHT IN REACH. SEE SHIFT ASSESSMENT.
--- NOTE | 2019-12-19 09:30 | NUR ---
Commercial Lender in to see patient. No new needs or request at this time. She denies any home needs. When medically stable she will be discharged to home.
--- NOTE | 2019-12-19 11:04 | NUR ---
PT C/O HEADACHE, RATES PAIN 8 ON PAIN SCALE 0-10. MEDICATED WITH TYLENOL PO PER PRN ORDER, SEE EMAR. CALL LIGHT IN REACH.
--- NOTE | 2019-12-19 16:55 | NUR ---
CALLED DR. EVANS MADE AWARE PT RETURNED FROM TEST. OK TO DISCHARGE PER HER.
--- NOTE | 2019-12-19 17:10 | NUR ---
Discharge instructions reviewed with patient/family. Patient receptive and verbalizes understanding. Follow-up care arranged. Written instructions given to patient/family. HEPLOCK REMOVED 2X2 APPLIED. MONITOR REMOVED. PT ESCORTED VIA WHEELCHAIR FOR DISCHARGE. JENN PARMAR R
== END 2019-12-19 17:34 | disposition home or self-care (01) | DRG 663 ==
LOC: ED 15:50 → 4E 17:58 → EDHOLD 17:58 → 4E 19:36
PROVIDERS: Nurse Practitioner Family; ADMIT Internal Medicine
PROC: 30233N1 Transfusion of Nonautologous Red Blood Cells into Peripheral Vein, Percutaneous Approach (ICD-10-PCS; principal; 2019-12-17)
PROC: 0DB68ZX Excision of Stomach, Via Natural or Artificial Opening Endoscopic, Diagnostic (ICD-10-PCS; 2019-12-19)
PROC: 0DJD8ZZ Inspection of Lower Intestinal Tract, Via Natural or Artificial Opening Endoscopic (ICD-10-PCS; 2019-12-19)
DX: D50.9 Iron deficiency anemia, unspecified (principal); E87.6 Hypokalemia; K57.30 Diverticulosis of large intestine without perforation or abscess without bleeding; I10 Essential (primary) hypertension; E78.2 Mixed hyperlipidemia; F41.1 Generalized anxiety disorder; F51.04 Psychophysiologic insomnia; Z90.710 Acquired absence of both cervix and uterus; Z88.5 Allergy status to narcotic agent; Z88.8 Allergy status to other drugs, medicaments and biological substances

== ENCOUNTER → 2020-01-17 | Outpatient (CLI) | payer OTHER ==
[~2020-01-17] MED LIST changes: +Ferrex 150150 MG PO; +PROTONIX40 MG PO; +ZOLPIDEM10 MG PO
[2020-01-17 12:25] LABS: BASO % 0.4 % (0.0-1.0); EOS % 0.6 % (1.0-4.0); HEMATOCRIT 35.9 % (37.0-47.0); LYMPH # 2.5 10*3/uL (1.3-4.4); LYMPH % 52.1 % (27.0-41.0); MEAN CELL VOLUME 79.4 fl (81.0-99.0); MEAN CORPUSCULAR HGB 22.8 pg (27.0-31.0); MEAN CORPUSCULAR HGB CONC 28.7 g/dl (33.0-37.0); MEAN PLATELET VOLUME 9.7 fl (9.6-12.3); MONO # 0.3 10*3/uL (0.1-1.0); MONO % 6.5 % (3.0-9.0); NEUT # 1.9 10*3/uL (2.3-7.9); NEUT % 40.2 % (47.0-73.0); PLATELET COUNT AUTOMATED 405 10*3/uL (130-400); RED BLOOD COUNT 4.52 10*6/uL (4.10-5.10); WHITE BLOOD COUNT 4.8 10*3/uL (4.8-10.8)
[2020-01-20 17:10] LABS: A/G RATIO 1.1 (0.7-1.7); ALBUMIN 3.7 g/dL (2.9-4.4); ALPHA-1-GLOBULIN 0.2 g/dL (0.0-0.4); ALPHA-2-GLOBULIN 0.8 g/dL (0.4-1.0); BETA GLOBULIN 1.2 g/dL (0.7-1.3); GLOBULIN, TOTAL 3.3 g/dL (2.2-3.9); M-SPIKE Not Observed g/dL (Not Observed)
== END | disposition home or self-care (01) ==
LOC: LAB 11:52
PROVIDERS: Family Medicine
DX: R80.9 Proteinuria, unspecified (principal); D64.9 Anemia, unspecified

== ENCOUNTER → 2020-01-24 | Outpatient (CLI) | payer OTHER | END | disposition home or self-care (01) | LOC: LAB 12:17 | PROVIDERS: ATTEND Family Medicine | DX: R80.9 Proteinuria, unspecified (principal) ==

== ENCOUNTER → 2020-05-04 | Outpatient (CLI) | payer OTHER | END | disposition home or self-care (01) | LOC: COVID19 14:19 | PROVIDERS: ATTEND Family Medicine | DX: Z20.828 Contact with and (suspected) exposure to other viral communicable diseases (principal) ==

== ENCOUNTER → 2020-06-22 | Outpatient (CLI) | payer OTHER ==
[~2020-06-22] MED LIST changes: +DICYCLOMINE HCL10 MG PO
[2020-06-22 12:23] LABS: HEMATOCRIT 36.4 % (37.0-47.0); MEAN CELL VOLUME 82.4 fl (81.0-99.0); MEAN CORPUSCULAR HGB 23.5 pg (27.0-31.0); MEAN CORPUSCULAR HGB CONC 28.6 g/dl (33.0-37.0); RED BLOOD COUNT 4.42 10*6/uL (4.10-5.10); RED CELL DISTRI WIDTH 15.1 % (0-14.5); WHITE BLOOD COUNT 4.6 10*3/uL (4.8-10.8)
[2020-06-22 13:03] LABS: ALBUMIN 3.7 gm/dl (3.1-4.5); ALKALINE PHOSPHATASE 150 U/L (45-117); BUN 17 mg/dl (7-24); CHLORIDE 109 mmol/L (98-107); CHOLESTEROL 272 mg/dL (<200); HDL CHOLESTEROL 50 mg/dl (40-60); LDL CHOLESTEROL 180 mg/dL (9-159); POTASSIUM 3.4 mmol/L (3.5-5.1); SGOT/AST 13 IU/L (3-35); SGPT/ALT 25 U/L (12-78); SODIUM 138 mmol/L (136-145); TOTAL PROTEIN 7.6 gm/dL (6.4-8.2); TRIGLYCERIDES 208 mg/dl (<150); VLDL CHOLESTEROL 42 mg/dL (6-40)
[2020-06-22 13:11] LABS: VITAMIN D, 25-HYDROXY 29.9 ng/mL (30-100)
== END | disposition home or self-care (01) ==
LOC: LAB 11:43
PROVIDERS: ATTEND Family Medicine
DX: R53.83 Other fatigue (principal); D64.9 Anemia, unspecified; M25.449 Effusion, unspecified hand; E55.9 Vitamin D deficiency, unspecified; Z79.899 Other long term (current) drug therapy

== ENCOUNTER 2020-07-01 11:34 | Emergency (ER) | payer OTHER ==
[~2020-07-01] VITALS: Ht 170.1 cm; Wt 79.4 kg
[~2020-07-01 11:34] MED LIST changes: -DICYCLOMINE HCL10 MG PO
[2020-07-01 12:16] LABS: BASO % 0.6 % (0.0-1.0); EOS # 0.1 10*3/uL (0.0-0.4); EOS % 1.4 % (1.0-4.0); HEMATOCRIT 32.4 % (37.0-47.0); LYMPH # 1.9 10*3/uL (1.3-4.4); LYMPH % 53.3 % (27.0-41.0); MEAN CORPUSCULAR HGB CONC 28.1 g/dl (33.0-37.0); MEAN PLATELET VOLUME 9.6 fl (9.6-12.3); MONO # 0.2 10*3/uL (0.1-1.0); MONO % 6.3 % (3.0-9.0); NEUT # 1.4 10*3/uL (2.3-7.9); NEUT % 38.4 % (47.0-73.0); PLATELET COUNT AUTOMATED 422 10*3/uL (130-400); RED BLOOD COUNT 3.95 10*6/uL (4.10-5.10); RED CELL DISTRI WIDTH 15.1 % (0-14.5); WHITE BLOOD COUNT 3.5 10*3/uL (4.8-10.8)
[2020-07-01 12:32] LABS: ALBUMIN 3.2 gm/dl (3.1-4.5); ALKALINE PHOSPHATASE 126 U/L (45-117); BUN 12 mg/dl (7-24); CHLORIDE 114 mmol/L (98-107); CREATININE 0.72 mg/dL (0.55-1.02); LIPASE 156 U/L (73-393); POTASSIUM 3.3 mmol/L (3.5-5.1); SGOT/AST 15 IU/L (3-35); SGPT/ALT 21 U/L (12-78); SODIUM 142 mmol/L (136-145); TOTAL PROTEIN 6.6 gm/dL (6.4-8.2)
[2020-07-01 15:01] LABS: BILIRUBIN Negative (Negative); BLOOD Negative (Negative); CLARITY Clear (Clear); COLOR Yellow (Yellow); GLUCOSE Negative (Negative); KETONE Negative (Negative); LEUKO ESTERASE 1+ (Negative); NITRITE Negative (Negative)
[2020-07-01 15:07] LABS: RBC 0-2 rbc/hpf (0-2)
[2020-07-01 15:08] LABS: BACTERIA TRACE
[2020-07-01] MEDS ORDERED: DICYCLOMINE HCL10 MG PO (16:24)
== END 2020-07-01 16:35 | disposition home or self-care (01) ==
LOC: ED 11:34
PROVIDERS: Physician Assistant
DX: R10.11 Right upper quadrant pain (principal); Z90.49 Acquired absence of other specified parts of digestive tract; Z90.710 Acquired absence of both cervix and uterus; Z98.890 Other specified postprocedural states; Z79.899 Other long term (current) drug therapy; Z88.5 Allergy status to narcotic agent; Z88.6 Allergy status to analgesic agent

== ENCOUNTER 2020-07-10 17:09 | Emergency (ER) | payer OTHER ==
[~2020-07-10] VITALS: Ht 170.1 cm; Wt 79.4 kg
[~2020-07-10 17:09] MED LIST changes: +DICYCLOMINE HCL10 MG PO
[2020-07-10 18:25] LABS: BASO % 0.7 % (0.0-1.0); EOS # 0.3 10*3/uL (0.0-0.4); EOS % 6.5 % (1.0-4.0); HEMATOCRIT 34.3 % (37.0-47.0); LYMPH % 44.5 % (27.0-41.0); MEAN CELL VOLUME 84.1 fl (81.0-99.0); MEAN CORPUSCULAR HGB 23.8 pg (27.0-31.0); MEAN CORPUSCULAR HGB CONC 28.3 g/dl (33.0-37.0); MEAN PLATELET VOLUME 10.3 fl (9.6-12.3); MONO # 0.3 10*3/uL (0.1-1.0); MONO % 6.9 % (3.0-9.0); NEUT # 1.9 10*3/uL (2.3-7.9); NEUT % 41.2 % (47.0-73.0); PLATELET COUNT AUTOMATED 423 10*3/uL (130-400); RED BLOOD COUNT 4.08 10*6/uL (4.10-5.10); RED CELL DISTRI WIDTH 15.2 % (0-14.5); WHITE BLOOD COUNT 4.5 10*3/uL (4.8-10.8)
[2020-07-10 18:45] LABS: ALBUMIN 3.3 gm/dl (3.1-4.5); ALKALINE PHOSPHATASE 126 U/L (45-117); BUN 11 mg/dl (7-24); CHLORIDE 113 mmol/L (98-107); CREATININE 0.78 mg/dL (0.55-1.02); LIPASE 174 U/L (73-393); POTASSIUM 3.3 mmol/L (3.5-5.1); SGOT/AST 5 IU/L (3-35); SGPT/ALT 16 U/L (12-78); SODIUM 142 mmol/L (136-145); TOTAL PROTEIN 6.9 gm/dL (6.4-8.2)
== END 2020-07-10 19:17 | disposition home or self-care (01) ==
LOC: ED 17:09
PROVIDERS: Physician Assistant
DX: G89.18 Other acute postprocedural pain (principal); F41.9 Anxiety disorder, unspecified; F32.9 Major depressive disorder, single episode, unspecified; I25.10 Atherosclerotic heart disease of native coronary artery without angina pectoris; E78.00 Pure hypercholesterolemia, unspecified; Z88.8 Allergy status to other drugs, medicaments and biological substances; Z88.5 Allergy status to narcotic agent; Z79.899 Other long term (current) drug therapy

== ENCOUNTER → 2020-10-06 | Outpatient (CLI) | payer OTHER ==
[2020-10-06 13:54] LABS: HEMATOCRIT 34.7 % (37.0-47.0); MEAN CELL VOLUME 81.5 fl (81.0-99.0); MEAN CORPUSCULAR HGB 23.5 pg (27.0-31.0); MEAN CORPUSCULAR HGB CONC 28.8 g/dl (33.0-37.0); MEAN PLATELET VOLUME 10.5 fl (9.6-12.3); RED BLOOD COUNT 4.26 10*6/uL (4.10-5.10); RED CELL DISTRI WIDTH 17.1 % (0-14.5)
[2020-10-06 14:22] LABS: ALBUMIN 3.8 gm/dl (3.1-4.5); BUN 13 mg/dl (7-24); CHLORIDE 111 mmol/L (98-107); POTASSIUM 3.5 mmol/L (3.5-5.1); SGOT/AST 15 IU/L (3-35); SGPT/ALT 12 U/L (12-78); SODIUM 138 mmol/L (136-145); TOTAL PROTEIN 7.4 gm/dL (6.4-8.2)
[2020-10-06 14:23] LABS: ALKALINE PHOSPHATASE 148 U/L (45-117); CREATININE 0.89 mg/dL (0.55-1.02)
== END | disposition home or self-care (01) ==
LOC: LAB 13:28
PROVIDERS: ATTEND Family Medicine
DX: R91.1 Solitary pulmonary nodule (principal); R53.83 Other fatigue; R05 Cough

== ENCOUNTER → 2020-10-23 | Outpatient (CLI) | payer OTHER | END | disposition home or self-care (01) | LOC: CT 12:54 | PROVIDERS: ATTEND Nurse Practitioner Family | DX: R05 Cough (principal); R06.02 Shortness of breath ==

== ENCOUNTER 2020-11-05 12:57 | Emergency (ER) | payer OTHER ==
[~2020-11-05] VITALS: Ht 170.1 cm; Wt 74.8 kg
[2020-11-05 13:29] LABS: BASO % 0.5 % (0.0-1.0); EOS # 0.1 10*3/uL (0.0-0.4); EOS % 1.4 % (1.0-4.0); HEMATOCRIT 29.7 % (37.0-47.0); LYMPH # 1.5 10*3/uL (1.3-4.4); MEAN CELL VOLUME 81.8 fl (81.0-99.0); MEAN CORPUSCULAR HGB 23.7 pg (27.0-31.0); MEAN PLATELET VOLUME 9.5 fl (9.6-12.3); MONO # 0.2 10*3/uL (0.1-1.0); MONO % 5.1 % (3.0-9.0); NEUT # 2.4 10*3/uL (2.3-7.9); NEUT % 56.8 % (47.0-73.0); PLATELET COUNT AUTOMATED 349 10*3/uL (130-400); RED BLOOD COUNT 3.63 10*6/uL (4.10-5.10); RED CELL DISTRI WIDTH 17.6 % (0-14.5); WHITE BLOOD COUNT 4.1 10*3/uL (4.8-10.8)
[2020-11-05 13:45] LABS: ALBUMIN 2.8 gm/dl (3.1-4.5); ALKALINE PHOSPHATASE 103 U/L (45-117); BUN 16 mg/dl (7-24); CHLORIDE 114 mmol/L (98-107); CREATININE 0.84 mg/dL (0.55-1.02); LIPASE 198 U/L (73-393); POTASSIUM 3.8 mmol/L (3.5-5.1); SGOT/AST 11 IU/L (3-35); SGPT/ALT 8 U/L (12-78); SODIUM 139 mmol/L (136-145); TOTAL PROTEIN 6.4 gm/dL (6.4-8.2)
[2020-11-05 13:46] LABS: TROPONIN I < 0.015 ng/ml (<0.045)
[2020-11-05 14:54] LABS: BILIRUBIN Negative (Negative); BLOOD Negative (Negative); CLARITY Cloudy (Clear); COLOR Yellow (Yellow); GLUCOSE Negative (Negative); KETONE Trace (Negative); LEUKO ESTERASE 1+ (Negative); NITRITE Negative (Negative)
[2020-11-05 15:10] LABS: EPITHELIAL CELLS 16-20; MUCOUS 3+
== END 2020-11-05 15:54 | disposition home or self-care (01) ==
LOC: ED 12:57
PROVIDERS: Emergency Medicine
DX: R42 Dizziness and giddiness (principal); Z88.5 Allergy status to narcotic agent; Z88.8 Allergy status to other drugs, medicaments and biological substances; Z79.899 Other long term (current) drug therapy; Z90.711 Acquired absence of uterus with remaining cervical stump; Z98.890 Other specified postprocedural states

== ENCOUNTER 2021-05-01 08:37 | Emergency (ER) | payer OTHER ==
[~2021-05-01] VITALS: Ht 170.1 cm; Wt 74.8 kg
== END 2021-05-01 09:54 | disposition home or self-care (01) ==
LOC: ED 08:37
DX: L27.1 Localized skin eruption due to drugs and medicaments taken internally (principal)

== ENCOUNTER → 2021-06-08 | Outpatient (CLI) | payer OTHER | END | disposition home or self-care (01) | LOC: RAD 12:28 | PROVIDERS: ATTEND Nurse Practitioner Family | DX: M51.37 Other intervertebral disc degeneration, lumbosacral region (principal) ==

== ENCOUNTER 2021-06-26 18:39 | Emergency (ER) | payer OTHER ==
[~2021-06-26] VITALS: Ht 170.1 cm; Wt 74.8 kg
[2021-06-26] MEDS ORDERED: HYDROCODONE-AC1 EAC1 PO (21:42)
== END 2021-06-26 23:16 | disposition home or self-care (01) ==
LOC: ED 18:39
DX: S22.42XA Multiple fractures of ribs, left side, initial encounter for closed fracture (principal); Z88.6 Allergy status to analgesic agent; Z79.899 Other long term (current) drug therapy; Z90.49 Acquired absence of other specified parts of digestive tract; Z90.710 Acquired absence of both cervix and uterus; Z98.890 Other specified postprocedural states; W18.39XA Other fall on same level, initial encounter; Y93.89 Activity, other specified; Y92.89 Other specified places as the place of occurrence of the external cause; Y99.8 Other external cause status

== ENCOUNTER → 2021-09-14 | Outpatient (CLI) | payer OTHER | END | disposition home or self-care (01) | LOC: RAD 14:37 | PROVIDERS: ATTEND Nurse Practitioner Family | DX: J98.4 Other disorders of lung (principal); J18.9 Pneumonia, unspecified organism; R06.2 Wheezing; R05.9 Cough, unspecified ==

== ENCOUNTER 2021-12-01 16:46 | Emergency (ER) | payer OTHER ==
[~2021-12-01] VITALS: Ht 170.1 cm; Wt 79.4 kg
[2021-12-01] MEDS ORDERED: HYDROXYZINE PAM25 M1 PO (19:51)
== END 2021-12-01 20:03 | disposition home or self-care (01) ==
LOC: ED 16:46
DX: F41.9 Anxiety disorder, unspecified (principal); Z79.899 Other long term (current) drug therapy; Z90.49 Acquired absence of other specified parts of digestive tract; Z90.710 Acquired absence of both cervix and uterus; Z98.890 Other specified postprocedural states

== ENCOUNTER 2021-12-04 11:47 | Emergency (ER) | payer OTHER ==
[~2021-12-04] VITALS: Ht 170.1 cm; Wt 79.4 kg
[~2021-12-04 11:47] MED LIST changes: +HYDROXYZINE PAM25 M1 PO
[2021-12-04] MEDS ORDERED: ATIVAN0.5 MG PO ×2 (13:24→13:26)
== END 2021-12-04 13:27 | disposition home or self-care (01) ==
LOC: ED 11:47
DX: F41.9 Anxiety disorder, unspecified (principal); Z76.0 Encounter for issue of repeat prescription

== ENCOUNTER 2022-01-12 11:52 | Emergency (ER) | payer OTHER ==
[~2022-01-12] VITALS: Ht 170.1 cm; Wt 81.2 kg
[2022-01-12] MEDS ORDERED: VIBRA-TAB100 MG PO (12:20)
[2022-01-12 12:47] LABS: BASO % 0.5 % (0.0-1.0); EOS # 0.1 10*3/uL (0.0-0.4); EOS % 2.5 % (1.0-4.0); HEMATOCRIT 35.5 % (37.0-47.0); LYMPH # 2.2 10*3/uL (1.3-4.4); MEAN CELL VOLUME 82.2 fl (81.0-99.0); MEAN CORPUSCULAR HGB 25.9 pg (27.0-31.0); MEAN CORPUSCULAR HGB CONC 31.5 g/dl (33.0-37.0); MEAN PLATELET VOLUME 9.5 fl (9.6-12.3); MONO # 0.3 10*3/uL (0.1-1.0); MONO % 5.6 % (3.0-9.0); NEUT # 1.8 10*3/uL (2.3-7.9); NEUT % 41.2 % (47.0-73.0); PLATELET COUNT AUTOMATED 404 10*3/uL (130-400); RED BLOOD COUNT 4.32 10*6/uL (4.10-5.10); RED CELL DISTRI WIDTH 17.6 % (0-14.5); WHITE BLOOD COUNT 4.4 10*3/uL (4.8-10.8)
[2022-01-12 12:58] LABS: ACT PARTIAL THROMBO TIME 25.6 SECONDS (20.0-32.1); INTERNATIONAL NORM RATIO 0.9 (2.0-3.5)
[2022-01-12 13:02] LABS: ALKALINE PHOSPHATASE 116 U/L (45-117); BUN 15 mg/dl (7-24); CHLORIDE 113 mmol/L (98-107); POTASSIUM 3.4 mmol/L (3.5-5.1); SGOT/AST 18 IU/L (3-35); SGPT/ALT 36 U/L (12-78); SODIUM 144 mmol/L (136-145); TOTAL PROTEIN 6.4 gm/dL (6.4-8.2)
== END 2022-01-12 14:47 | disposition home or self-care (01) ==
LOC: ED 11:52
PROVIDERS: Emergency Medicine
DX: J40 Bronchitis, not specified as acute or chronic (principal); Z88.8 Allergy status to other drugs, medicaments and biological substances; Z79.899 Other long term (current) drug therapy; Z90.710 Acquired absence of both cervix and uterus; Z90.49 Acquired absence of other specified parts of digestive tract; Z98.890 Other specified postprocedural states

== ENCOUNTER 2022-04-10 13:27 | Emergency (ER) | payer OTHER ==
[~2022-04-10] VITALS: Ht 170.1 cm; Wt 80.7 kg
[~2022-04-10 13:27] MED LIST changes: +VIBRA-TAB100 MG PO
[2022-04-10] MEDS ORDERED: PREDNISONE20 M1 PO (15:15)
== END 2022-04-10 15:29 | disposition home or self-care (01) ==
LOC: ED 13:27
DX: J06.9 Acute upper respiratory infection, unspecified (principal); Z20.822 Contact with and (suspected) exposure to COVID-19; Z88.6 Allergy status to analgesic agent; Z79.899 Other long term (current) drug therapy; Z90.710 Acquired absence of both cervix and uterus; Z90.49 Acquired absence of other specified parts of digestive tract; Z98.890 Other specified postprocedural states

== ENCOUNTER → 2022-05-02 | Outpatient (CLI) | payer OTHER | END | disposition home or self-care (01) | LOC: CT 04-25 11:00 | PROVIDERS: ATTEND Nurse Practitioner Family | DX: R91.1 Solitary pulmonary nodule (principal) ==

== ENCOUNTER 2022-05-07 07:43 | Emergency (ER) | payer OTHER ==
[~2022-05-07] VITALS: Ht 170.1 cm; Wt 79.8 kg
[2022-05-07 08:38] LABS: BASO % 0.2 % (0.0-1.0); EOS % 0.2 % (1.0-4.0); HEMATOCRIT 31.1 % (37.0-47.0); LYMPH # 0.8 10*3/uL (1.3-4.4); MEAN CELL VOLUME 82.7 fl (81.0-99.0); MEAN CORPUSCULAR HGB CONC 30.2 g/dl (33.0-37.0); MONO # 0.4 10*3/uL (0.1-1.0); MONO % 8.5 % (3.0-9.0); NEUT % 71.9 % (47.0-73.0); PLATELET COUNT AUTOMATED 382 10*3/uL (130-400); RED BLOOD COUNT 3.76 10*6/uL (4.10-5.10); RED CELL DISTRI WIDTH 14.5 % (0-14.5); WHITE BLOOD COUNT 4.1 10*3/uL (4.8-10.8)
[2022-05-07 08:58] LABS: ALKALINE PHOSPHATASE 99 U/L (46-116); BUN 14 mg/dl (9-23); CHLORIDE 108 mmol/L (98-107); CREATININE 0.72 mg/dL (0.55-1.02); POTASSIUM 3.1 mmol/L (3.4-5.1); SGPT/ALT 25 U/L (10-49); SODIUM 137 mmol/L (136-145); TOTAL PROTEIN 6.4 gm/dL (6.0-8.0)
[2022-05-07] MEDS ORDERED: BENZONATATE100 M1 PO (09:22)
[2022-05-07] MEDS ORDERED: PAXLOVID 300-11 EAC2 PO (09:22)
== END 2022-05-07 09:40 | disposition home or self-care (01) ==
LOC: ED 07:43
PROVIDERS: Student in an Organized Health Care Education/Training Program
DX: U07.1 COVID-19 (principal); Z20.822 Contact with and (suspected) exposure to COVID-19; Z88.8 Allergy status to other drugs, medicaments and biological substances; Z79.899 Other long term (current) drug therapy; Z98.890 Other specified postprocedural states; Z90.49 Acquired absence of other specified parts of digestive tract; Z90.710 Acquired absence of both cervix and uterus

== ENCOUNTER → 2022-06-21 | Outpatient (CLI) | payer OTHER ==
[~2022-06-21] MED LIST changes: +BENZONATATE100 M1 PO; +PAXLOVID 300-11 EAC2 PO
[2022-06-21 12:39] LABS: BASO # 0.1 10*3/uL (0.0-0.1); BASO % 1.1 % (0.0-1.0); EOS # 0.1 10*3/uL (0.0-0.4); EOS % 1.7 % (1.0-4.0); HEMATOCRIT 33.7 % (37.0-47.0); LYMPH # 2.5 10*3/uL (1.3-4.4); LYMPH % 37.8 % (27.0-41.0); MEAN CELL VOLUME 79.1 fl (81.0-99.0); MEAN CORPUSCULAR HGB 22.3 pg (27.0-31.0); MEAN CORPUSCULAR HGB CONC 28.2 g/dl (33.0-37.0); MONO # 0.4 10*3/uL (0.1-1.0); MONO % 6.4 % (3.0-9.0); NEUT # 3.5 10*3/uL (2.3-7.9); NEUT % 52.8 % (47.0-73.0); PLATELET COUNT AUTOMATED 690 10*3/uL (130-400); RED BLOOD COUNT 4.26 10*6/uL (4.10-5.10); RED CELL DISTRI WIDTH 15.2 % (0-14.5); WHITE BLOOD COUNT 6.6 10*3/uL (4.8-10.8)
== END | disposition home or self-care (01) ==
LOC: US 07:30 → LAB 11:01
PROVIDERS: ATTEND Nurse Practitioner Family
DX: M79.661 Pain in right lower leg (principal); M79.662 Pain in left lower leg; D64.9 Anemia, unspecified

== ENCOUNTER → 2022-06-23 | Outpatient (CLI) | payer OTHER ==
[2022-06-23 11:09] LABS: RETICULOCYTE % 1.47 % (0.50-2.50)
[2022-06-24 14:07] LABS: t-TRANSGLUTAMINASE (tTG) IGA <2 U/mL (0-3); t-TRANSGLUTAMINASE (tTG) IgG <2 U/mL (0-5)
[2022-06-24 15:07] LABS: ENDOMYSIAL ANTIBODY IgA Negative (Negative)
[2022-06-26 11:06] LABS: METHYLMALONIC ACID 307 nmol/L (0-378)
== END | disposition home or self-care (01) ==
LOC: LAB 10:19
PROVIDERS: ATTEND Nurse Practitioner Family
DX: D64.9 Anemia, unspecified (principal); D50.8 Other iron deficiency anemias

== ENCOUNTER 2022-09-11 19:11 | Emergency (ER) | payer OTHER ==
[~2022-09-11] VITALS: Ht 167.6 cm; Wt 81.6 kg
[2022-09-11] MEDS ORDERED: METHOCARBAMOL500 M1 PO (19:54)
[2022-09-11] MEDS ORDERED: PREDNISONE20 M1 PO (19:54)
== END 2022-09-11 20:06 | disposition home or self-care (01) ==
LOC: ED 19:11
DX: S29.011A Strain of muscle and tendon of front wall of thorax, initial encounter (principal); F41.9 Anxiety disorder, unspecified; F32.A Depression, unspecified; I25.10 Atherosclerotic heart disease of native coronary artery without angina pectoris; E78.00 Pure hypercholesterolemia, unspecified; Z88.5 Allergy status to narcotic agent; Z91.041 Radiographic dye allergy status; Z88.8 Allergy status to other drugs, medicaments and biological substances; Z90.49 Acquired absence of other specified parts of digestive tract; Z90.710 Acquired absence of both cervix and uterus; Z98.890 Other specified postprocedural states; X58.XXXA Exposure to other specified factors, initial encounter; Y93.89 Activity, other specified; Y92.89 Other specified places as the place of occurrence of the external cause; Y99.8 Other external cause status

== ENCOUNTER → 2022-09-26 | Outpatient (CLI) | payer OTHER ==
[~2022-09-26] MED LIST changes: +METHOCARBAMOL500 M1 PO
== END | disposition home or self-care (01) ==
LOC: RAD 13:36
PROVIDERS: ATTEND Nurse Practitioner Family
DX: R05.9 Cough, unspecified (principal)

== ENCOUNTER 2022-10-16 13:29 | Emergency (ER) | payer OTHER ==
[~2022-10-16] VITALS: Ht 170.1 cm; Wt 77.1 kg
[2022-10-16] MEDS ORDERED: HYDROCODONE-AC1 EAC1 PO (15:18)
== END 2022-10-16 15:21 | disposition home or self-care (01) ==
LOC: ED 13:29
DX: S22.32XA Fracture of one rib, left side, initial encounter for closed fracture (principal); F41.9 Anxiety disorder, unspecified; I25.10 Atherosclerotic heart disease of native coronary artery without angina pectoris; F32.A Depression, unspecified; E78.00 Pure hypercholesterolemia, unspecified; Z88.5 Allergy status to narcotic agent; Z91.041 Radiographic dye allergy status; Z88.8 Allergy status to other drugs, medicaments and biological substances; Z90.49 Acquired absence of other specified parts of digestive tract; Z90.710 Acquired absence of both cervix and uterus; Z98.890 Other specified postprocedural states; W51.XXXA Accidental striking against or bumped into by another person, initial encounter; Y93.72 Activity, wrestling; Y92.39 Other specified sports and athletic area as the place of occurrence of the external cause; Y99.8 Other external cause status

== ENCOUNTER 2023-02-12 09:06 | Emergency (ER) | payer OTHER ==
[~2023-02-12] VITALS: Ht 170.1 cm; Wt 76.2 kg
[2023-02-12] MEDS ORDERED: ONDANSETRON HYDR4 M1 PO (09:32)
[2023-02-12] MEDS ORDERED: BENZONATATE100 M1 PO (09:32)
== END 2023-02-12 09:48 | disposition home or self-care (01) ==
LOC: ED 09:06
DX: U07.1 COVID-19 (principal); F41.9 Anxiety disorder, unspecified; F32.A Depression, unspecified; I25.10 Atherosclerotic heart disease of native coronary artery without angina pectoris; E78.00 Pure hypercholesterolemia, unspecified; Z88.5 Allergy status to narcotic agent; Z91.041 Radiographic dye allergy status; Z88.8 Allergy status to other drugs, medicaments and biological substances; Z95.5 Presence of coronary angioplasty implant and graft; Z98.890 Other specified postprocedural states; Z90.710 Acquired absence of both cervix and uterus; Z90.49 Acquired absence of other specified parts of digestive tract

== ENCOUNTER 2023-04-13 16:31 | Emergency (ER) | payer OTHER ==
[~2023-04-13] VITALS: Ht 170.1 cm; Wt 72.6 kg
[~2023-04-13 16:31] MED LIST changes: +ONDANSETRON HYDR4 M1 PO
[2023-04-13] MEDS ORDERED: PREDNISONE20 M1 PO (19:18)
== END 2023-04-13 19:27 | disposition home or self-care (01) ==
LOC: ED 16:31
DX: R07.81 Pleurodynia (principal); F41.9 Anxiety disorder, unspecified; F32.A Depression, unspecified; I25.10 Atherosclerotic heart disease of native coronary artery without angina pectoris; E78.00 Pure hypercholesterolemia, unspecified; Z88.5 Allergy status to narcotic agent; Z91.041 Radiographic dye allergy status; Z88.8 Allergy status to other drugs, medicaments and biological substances; Z90.49 Acquired absence of other specified parts of digestive tract; Z90.710 Acquired absence of both cervix and uterus; Z98.890 Other specified postprocedural states; Z95.5 Presence of coronary angioplasty implant and graft

== ENCOUNTER → 2023-05-30 | Outpatient (CLI) | payer OTHER ==
[~2023-05-30] MED LIST changes: +PERCOCET 5-3251 EACH PO
== END | disposition home or self-care (01) ==
LOC: RAD 13:54
PROVIDERS: ATTEND Nurse Practitioner Family
DX: S22.42XA Multiple fractures of ribs, left side, initial encounter for closed fracture (principal); R07.81 Pleurodynia; X58.XXXA Exposure to other specified factors, initial encounter; Y93.89 Activity, other specified; Y92.89 Other specified places as the place of occurrence of the external cause; Y99.8 Other external cause status

== ENCOUNTER 2023-06-02 16:01 | Emergency (ER) | payer OTHER ==
[~2023-06-02] VITALS: Ht 170.1 cm; Wt 72.6 kg
[~2023-06-02 16:01] MED LIST changes: -PERCOCET 5-3251 EACH PO
[2023-06-02] MEDS ORDERED: PERCOCET 5-3251 EACH PO ×2 (18:44→18:45)
== END 2023-06-02 19:06 | disposition home or self-care (01) ==
LOC: ED 16:01
DX: S22.42XA Multiple fractures of ribs, left side, initial encounter for closed fracture (principal); F41.9 Anxiety disorder, unspecified; F32.A Depression, unspecified; I25.10 Atherosclerotic heart disease of native coronary artery without angina pectoris; E78.00 Pure hypercholesterolemia, unspecified; Z88.5 Allergy status to narcotic agent; Z88.8 Allergy status to other drugs, medicaments and biological substances; Z91.041 Radiographic dye allergy status; Z90.49 Acquired absence of other specified parts of digestive tract; Z90.710 Acquired absence of both cervix and uterus; Z98.890 Other specified postprocedural states; Z95.5 Presence of coronary angioplasty implant and graft; X58.XXXA Exposure to other specified factors, initial encounter; Y93.89 Activity, other specified; Y92.009 Unspecified place in unspecified non-institutional (private) residence as the place of occurrence of the external cause; Y99.8 Other external cause status

== ENCOUNTER 2023-06-06 12:08 | Emergency (ER) | payer OTHER ==
[~2023-06-06] VITALS: Ht 170.1 cm; Wt 72.6 kg
[~2023-06-06 12:08] MED LIST changes: +PERCOCET 5-3251 EACH PO
== END 2023-06-06 14:26 | disposition home or self-care (01) ==
LOC: ED 12:08
DX: R07.81 Pleurodynia (principal); F41.9 Anxiety disorder, unspecified; D64.9 Anemia, unspecified; E87.6 Hypokalemia; F32.A Depression, unspecified; I25.10 Atherosclerotic heart disease of native coronary artery without angina pectoris; E78.00 Pure hypercholesterolemia, unspecified; Z88.5 Allergy status to narcotic agent; Z91.041 Radiographic dye allergy status; Z88.8 Allergy status to other drugs, medicaments and biological substances; Z90.49 Acquired absence of other specified parts of digestive tract; Z90.710 Acquired absence of both cervix and uterus; Z98.890 Other specified postprocedural states; Z95.5 Presence of coronary angioplasty implant and graft; Z87.891 Personal history of nicotine dependence

== ENCOUNTER 2023-06-23 15:11 | Emergency (ER) | payer OTHER ==
[~2023-06-23] VITALS: Ht 170.1 cm; Wt 68.0 kg
[2023-06-23 15:57] LABS: BASO % 0.6 % (0.0-1.0); EOS # 0.2 10*3/uL (0.0-0.4); EOS % 2.9 % (1.0-4.0); HEMATOCRIT 41.2 % (37.0-47.0); LYMPH # 2.6 10*3/uL (1.3-4.4); LYMPH % 49.7 % (27.0-41.0); MEAN CELL VOLUME 88.8 fl (81.0-99.0); MEAN CORPUSCULAR HGB 29.5 pg (27.0-31.0); MEAN CORPUSCULAR HGB CONC 33.3 g/dl (33.0-37.0); MEAN PLATELET VOLUME 9.3 fl (9.6-12.3); MONO # 0.4 10*3/uL (0.1-1.0); NEUT # 2.1 10*3/uL (2.3-7.9); NEUT % 39.6 % (47.0-73.0); PLATELET COUNT AUTOMATED 357 10*3/uL (130-400); RED BLOOD COUNT 4.64 10*6/uL (4.10-5.10); RED CELL DISTRI WIDTH 12.7 % (0-14.5); WHITE BLOOD COUNT 5.3 10*3/uL (4.8-10.8)
[2023-06-23 16:31] LABS: ALKALINE PHOSPHATASE 96 U/L (46-116); BUN 17 mg/dl (9-23); CHLORIDE 108 mmol/L (98-107); POTASSIUM 3.1 mmol/L (3.4-5.1); SGPT/ALT 11 U/L (5-49); TOTAL PROTEIN 6.9 gm/dL (6.0-8.0)
[2023-06-23] MEDS ORDERED: OMEPRAZOLE40 MG PO (17:14)
== END 2023-06-23 17:25 | disposition home or self-care (01) ==
LOC: ED 15:11
PROVIDERS: Internal Medicine
DX: K21.9 Gastro-esophageal reflux disease without esophagitis (principal); R63.0 Anorexia; R53.1 Weakness; Z88.5 Allergy status to narcotic agent; Z91.041 Radiographic dye allergy status; Z88.6 Allergy status to analgesic agent; Z79.899 Other long term (current) drug therapy; Z90.49 Acquired absence of other specified parts of digestive tract; Z90.710 Acquired absence of both cervix and uterus; Z98.890 Other specified postprocedural states

== ENCOUNTER → 2023-07-12 | Outpatient (CLI) | payer OTHER ==
[~2023-07-12] MED LIST changes: +OMEPRAZOLE40 MG PO
== END | disposition home or self-care (01) ==
LOC: RAD 11:17
PROVIDERS: ATTEND Nurse Practitioner Family
DX: R06.02 Shortness of breath (principal); R06.2 Wheezing; R05.1 Acute cough; M47.814 Spondylosis without myelopathy or radiculopathy, thoracic region

== ENCOUNTER 2023-08-02 14:52 | Emergency (ER) | payer OTHER ==
[~2023-08-02] VITALS: Ht 170.1 cm; Wt 81.6 kg
[2023-08-02 15:17] LABS: BASO % 0.6 % (0.0-1.0); EOS # 0.2 10*3/uL (0.0-0.4); HEMATOCRIT 39.3 % (37.0-47.0); LYMPH # 2.4 10*3/uL (1.3-4.4); MEAN CELL VOLUME 92.5 fl (81.0-99.0); MEAN CORPUSCULAR HGB 30.1 pg (27.0-31.0); MEAN CORPUSCULAR HGB CONC 32.6 g/dl (33.0-37.0); MEAN PLATELET VOLUME 9.1 fl (9.6-12.3); MONO # 0.3 10*3/uL (0.1-1.0); MONO % 5.3 % (3.0-9.0); NEUT # 2.1 10*3/uL (2.3-7.9); NEUT % 41.9 % (47.0-73.0); PLATELET COUNT AUTOMATED 314 10*3/uL (130-400); RED BLOOD COUNT 4.25 10*6/uL (4.10-5.10); RED CELL DISTRI WIDTH 13.9 % (0-14.5); WHITE BLOOD COUNT 4.9 10*3/uL (4.8-10.8)
[2023-08-02 15:41] LABS: ALKALINE PHOSPHATASE 90 U/L (46-116); BUN 10 mg/dl (9-23); CHLORIDE 110 mmol/L (98-107); LIPASE 38 U/L (12-53); POTASSIUM 3.7 mmol/L (3.4-5.1); SGPT/ALT 15 U/L (5-49); TOTAL PROTEIN 6.7 gm/dL (6.0-8.0)
== END 2023-08-02 19:15 | disposition home or self-care (01) ==
LOC: ED
PROVIDERS: Physician Assistant Medical
DX: R07.81 Pleurodynia (principal); R07.89 Other chest pain; Z88.5 Allergy status to narcotic agent; Z91.041 Radiographic dye allergy status; Z88.6 Allergy status to analgesic agent; Z79.899 Other long term (current) drug therapy

== ENCOUNTER → 2023-08-15 | Outpatient (CLI) | payer OTHER ==
[~2023-08-15] MED LIST changes: +Regadenoson 0.4 MG/5 ML SYR IV ONE; +SINEMET 25-1001 EACH PO; +TOPAMAX50 MG PO; +Technetium Tc 99M Tetrofosmi 0.23 MG KIT IJ SCH
== END | disposition home or self-care (01) ==
LOC: CARD 00:50
PROVIDERS: ATTEND Internal Medicine Cardiovascular Disease
DX: R94.31 Abnormal electrocardiogram [ECG] [EKG] (principal); I20.9 Angina pectoris, unspecified

== ENCOUNTER → 2023-09-12 | Outpatient (CLI) | payer OTHER ==
[~2023-09-12] MED LIST changes: +BARIUM SULFATE 60% 355 ML BOT PO ONE; +BARIUM SULFATE 98% 340 GM BOT PO ONE; -Regadenoson 0.4 MG/5 ML SYR IV ONE; +SODIUM BICARBONATE 4 GM PACK PO ONE; -Technetium Tc 99M Tetrofosmi 0.23 MG KIT IJ SCH
== END | disposition home or self-care (01) ==
LOC: RAD 09-07 00:33
PROVIDERS: ATTEND Nurse Practitioner Family
DX: K22.89 Other specified disease of esophagus (principal); R13.10 Dysphagia, unspecified

== ENCOUNTER → 2023-11-21 | Outpatient (CLI) | payer OTHER ==
[~2023-11-21] MED LIST changes: -BARIUM SULFATE 60% 355 ML BOT PO ONE; -BARIUM SULFATE 98% 340 GM BOT PO ONE; -SODIUM BICARBONATE 4 GM PACK PO ONE
== END | disposition home or self-care (01) ==
LOC: RAD 12:51
PROVIDERS: ATTEND Nurse Practitioner Family
DX: M25.561 Pain in right knee (principal); M79.89 Other specified soft tissue disorders

== ENCOUNTER → 2024-01-15 | Outpatient (CLI) | payer OTHER | END | disposition home or self-care (01) | LOC: CARD 00:01 | PROVIDERS: ATTEND Internal Medicine Cardiovascular Disease | DX: R06.02 Shortness of breath (principal); G20.C Parkinsonism, unspecified ==

== ENCOUNTER 2024-02-20 12:57 | Emergency (ER) | payer OTHER ==
[~2024-02-20] VITALS: Ht 170.1 cm; Wt 65.8 kg
[2024-02-20 13:20] LABS: BASO % 0.4 % (0.0-1.0); EOS # 0.1 10*3/uL (0.0-0.4); EOS % 1.6 % (1.0-4.0); HEMATOCRIT 36.7 % (37.0-47.0); LYMPH # 1.7 10*3/uL (1.3-4.4); LYMPH % 33.8 % (27.0-41.0); MEAN CELL VOLUME 89.7 fl (81.0-99.0); MEAN CORPUSCULAR HGB 27.4 pg (27.0-31.0); MEAN CORPUSCULAR HGB CONC 30.5 g/dl (33.0-37.0); MONO # 0.4 10*3/uL (0.1-1.0); MONO % 8.3 % (3.0-9.0); NEUT # 2.9 10*3/uL (2.3-7.9); NEUT % 55.9 % (47.0-73.0); PLATELET COUNT AUTOMATED 339 10*3/uL (130-400); RED BLOOD COUNT 4.09 10*6/uL (4.10-5.10); RED CELL DISTRI WIDTH 14.6 % (0-14.5); WHITE BLOOD COUNT 5.2 10*3/uL (4.8-10.8)
[2024-02-20 13:32] LABS: BILIRUBIN 2+ (Negative); BLOOD Negative (Negative); CLARITY Clear (Clear); COLOR Orange (Yellow); GLUCOSE Negative (Negative); KETONE Negative (Negative); NITRITE Positive (Negative); PH 6.5 (4.5-8.0); SPECIFIC GRAVITY 1.015 (1.001-1.030)
[2024-02-20 13:43] LABS: BUN 13 mg/dl (9-23); CHLORIDE 111 mmol/L (98-107); POTASSIUM 3.6 mmol/L (3.4-5.1)
[2024-02-20 13:44] LABS: LEUKO ESTERASE 1+ (Negative)
[2024-02-20] MEDS ORDERED: Acetaminophen/Oxycodone 5 MG/325 MG TABLET PO ONE (14:00)
[2024-02-20 14:14] LABS: BACTERIA 1+
[2024-02-20] MEDS ORDERED: CIPRO500 MG PO (16:22)
== END 2024-02-20 16:29 | disposition home or self-care (01) ==
LOC: ED 12:57
PROVIDERS: Internal Medicine
DX: N39.0 Urinary tract infection, site not specified (principal); R11.2 Nausea with vomiting, unspecified; J44.9 Chronic obstructive pulmonary disease, unspecified; F41.9 Anxiety disorder, unspecified; F32.A Depression, unspecified; E78.00 Pure hypercholesterolemia, unspecified; Z88.5 Allergy status to narcotic agent; Z91.041 Radiographic dye allergy status; Z88.8 Allergy status to other drugs, medicaments and biological substances; Z90.49 Acquired absence of other specified parts of digestive tract; Z98.890 Other specified postprocedural states

== ENCOUNTER 2024-04-23 11:33 | Emergency (ER) | payer OTHER ==
[~2024-04-23] VITALS: Ht 170.1 cm; Wt 72.6 kg
[~2024-04-23 11:33] MED LIST changes: +CIPRO500 MG PO
[2024-04-23] MEDS ORDERED: Acetaminophen/Hydrocodone 5 MG/325 MG TABLET PO ONE (12:00)
[2024-04-23] MEDS ORDERED: HYDROCODONE-AC1 EAC1 PO (13:06)
== END 2024-04-23 13:23 | disposition home or self-care (01) ==
LOC: ED 11:33
DX: S22.41XA Multiple fractures of ribs, right side, initial encounter for closed fracture (principal); S20.211A Contusion of right front wall of thorax, initial encounter; J44.9 Chronic obstructive pulmonary disease, unspecified; F32.A Depression, unspecified; E78.00 Pure hypercholesterolemia, unspecified; F41.9 Anxiety disorder, unspecified; Z88.5 Allergy status to narcotic agent; Z91.041 Radiographic dye allergy status; Z88.8 Allergy status to other drugs, medicaments and biological substances; Z90.49 Acquired absence of other specified parts of digestive tract; Z98.890 Other specified postprocedural states; W01.10XA Fall on same level from slipping, tripping and stumbling with subsequent striking against unspecified object, initial encounter; Y93.89 Activity, other specified; Y92.89 Other specified places as the place of occurrence of the external cause; Y99.8 Other external cause status

== ENCOUNTER 2024-04-25 11:03 | Emergency (ER) | payer OTHER ==
[~2024-04-25] VITALS: Ht 170.1 cm; Wt 72.6 kg
[2024-04-25] MEDS ORDERED: Ondansetron Hydrochloride 4 MG TAB SL ONE (11:25)
[2024-04-25 11:45] LABS: BASO % 0.7 % (0.0-1.0); EOS % 0.9 % (1.0-4.0); MEAN CELL VOLUME 89.6 fl (81.0-99.0); MEAN CORPUSCULAR HGB 27.1 pg (27.0-31.0); MEAN CORPUSCULAR HGB CONC 30.3 g/dl (33.0-37.0); MEAN PLATELET VOLUME 10.1 fl (9.6-12.3); MONO # 0.2 10*3/uL (0.1-1.0); MONO % 4.8 % (3.0-9.0); NEUT # 2.7 10*3/uL (2.3-7.9); NEUT % 60.8 % (47.0-73.0); PLATELET COUNT AUTOMATED 352 10*3/uL (130-400); RED BLOOD COUNT 4.13 10*6/uL (4.10-5.10); RED CELL DISTRI WIDTH 14.3 % (0-14.5); WHITE BLOOD COUNT 4.4 10*3/uL (4.8-10.8)
[2024-04-25 12:03] LABS: BUN 8 mg/dl (9-23); CHLORIDE 107 mmol/L (98-107); POTASSIUM 3.5 mmol/L (3.4-5.1)
[2024-04-25] MEDS ORDERED: Ondansetron4 MG PO (13:27)
== END 2024-04-25 13:31 | disposition home or self-care (01) ==
LOC: ED 11:03
PROVIDERS: Internal Medicine
DX: R11.2 Nausea with vomiting, unspecified (principal); J44.9 Chronic obstructive pulmonary disease, unspecified; F41.9 Anxiety disorder, unspecified; F32.A Depression, unspecified; E78.00 Pure hypercholesterolemia, unspecified; Z88.5 Allergy status to narcotic agent; Z91.041 Radiographic dye allergy status; Z88.8 Allergy status to other drugs, medicaments and biological substances; Z90.49 Acquired absence of other specified parts of digestive tract; Z98.890 Other specified postprocedural states

== ENCOUNTER 2024-06-05 08:52 | Emergency (ER) | payer OTHER ==
[~2024-06-05] VITALS: Wt 71.3 kg
[~2024-06-05 08:52] MED LIST changes: +Ondansetron4 MG PO
[2024-06-05] MEDS ORDERED: IBUPROFEN 600 MG TAB PO ONE (09:30)
[2024-06-05] MEDS ORDERED: Acetaminophen/Oxycodone 5 MG/325 MG TABLET PO ONE (09:30)
== END 2024-06-05 10:53 | disposition home or self-care (01) ==
LOC: ED 08:52
DX: R07.89 Other chest pain (principal); R07.81 Pleurodynia; Z88.5 Allergy status to narcotic agent; Z88.6 Allergy status to analgesic agent; Z91.041 Radiographic dye allergy status; Z79.899 Other long term (current) drug therapy; Z90.49 Acquired absence of other specified parts of digestive tract; Z98.890 Other specified postprocedural states

== ENCOUNTER 2024-06-06 18:48 | Emergency (ER) | payer OTHER ==
[~2024-06-06] VITALS: Ht 170.1 cm; Wt 71.2 kg
[2024-06-06] MEDS ORDERED: Acetaminophen/Oxycodone 5 MG/325 MG TABLET PO ONE (20:15)
[2024-06-06 20:44] LABS: BASO % 0.8 % (0.0-1.0); EOS # 0.1 10*3/uL (0.0-0.4); EOS % 1.9 % (1.0-4.0); HEMATOCRIT 35.3 % (37.0-47.0); MEAN CELL VOLUME 88.3 fl (81.0-99.0); MEAN CORPUSCULAR HGB 26.3 pg (27.0-31.0); MEAN CORPUSCULAR HGB CONC 29.7 g/dl (33.0-37.0); MEAN PLATELET VOLUME 9.5 fl (9.6-12.3); MONO # 0.3 10*3/uL (0.1-1.0); MONO % 5.3 % (3.0-9.0); NEUT # 2.8 10*3/uL (2.3-7.9); NEUT % 53.4 % (47.0-73.0); PLATELET COUNT AUTOMATED 366 10*3/uL (130-400); RED CELL DISTRI WIDTH 14.7 % (0-14.5); WHITE BLOOD COUNT 5.3 10*3/uL (4.8-10.8)
[2024-06-06 21:04] LABS: ALKALINE PHOSPHATASE 125 U/L (46-116); BUN 14 mg/dl (9-23); CHLORIDE 109 mmol/L (98-107); POTASSIUM 3.4 mmol/L (3.4-5.1); SGPT/ALT 9 U/L (5-49); TOTAL PROTEIN 6.8 gm/dL (6.0-8.0)
== END 2024-06-06 22:34 | disposition left against medical advice (07) ==
LOC: ED 18:48
PROVIDERS: Emergency Medicine
DX: R07.89 Other chest pain (principal); K21.9 Gastro-esophageal reflux disease without esophagitis; F41.9 Anxiety disorder, unspecified; D64.9 Anemia, unspecified; E87.6 Hypokalemia; J44.9 Chronic obstructive pulmonary disease, unspecified; E78.00 Pure hypercholesterolemia, unspecified; Z88.8 Allergy status to other drugs, medicaments and biological substances; Z91.041 Radiographic dye allergy status; Z90.49 Acquired absence of other specified parts of digestive tract; Z98.890 Other specified postprocedural states; Z88.5 Allergy status to narcotic agent

== ENCOUNTER 2024-07-07 14:24 | Emergency (ER) | payer OTHER ==
[~2024-07-07] VITALS: Ht 170.1 cm; Wt 71.7 kg
[2024-07-07] MEDS ORDERED: Loperamide Hydrochloride 2 MG CAP PO ONE (16:55)
[2024-07-07] MEDS ORDERED: SODIUM CHLORIDE 0.9% 1,000 ML IV ONE (16:55)
[2024-07-07 17:08] LABS: BASO % 0.7 % (0.0-1.0); EOS # 0.1 10*3/uL (0.0-0.4); EOS % 2.5 % (1.0-4.0); HEMATOCRIT 34.1 % (37.0-47.0); MEAN CORPUSCULAR HGB 26.5 pg (27.0-31.0); MEAN CORPUSCULAR HGB CONC 30.5 g/dl (33.0-37.0); MONO # 0.3 10*3/uL (0.1-1.0); NEUT # 1.7 10*3/uL (2.3-7.9); PLATELET COUNT AUTOMATED 349 10*3/uL (130-400); RED BLOOD COUNT 3.92 10*6/uL (4.10-5.10); RED CELL DISTRI WIDTH 14.6 % (0-14.5); WHITE BLOOD COUNT 4.4 10*3/uL (4.8-10.8)
[2024-07-07 17:22] LABS: BUN 10 mg/dl (9-23); CHLORIDE 109 mmol/L (98-107); POTASSIUM 3.2 mmol/L (3.4-5.1)
[2024-07-07] MEDS ORDERED: POTASSIUM CHLORIDE 20 MEQ TAB PO ONE (17:55)
[2024-07-07] MEDS ORDERED: ANTI-DIARRHEAL2 MG PO (18:10)
== END 2024-07-07 18:09 | disposition home or self-care (01) ==
LOC: ED 14:24
PROVIDERS: Emergency Medicine
DX: R19.7 Diarrhea, unspecified (principal); I10 Essential (primary) hypertension; E78.5 Hyperlipidemia, unspecified; J44.9 Chronic obstructive pulmonary disease, unspecified; F41.9 Anxiety disorder, unspecified; F32.A Depression, unspecified; E78.00 Pure hypercholesterolemia, unspecified; Z88.5 Allergy status to narcotic agent; Z91.041 Radiographic dye allergy status; Z88.8 Allergy status to other drugs, medicaments and biological substances; Z90.49 Acquired absence of other specified parts of digestive tract; Z98.890 Other specified postprocedural states

== ENCOUNTER → 2024-08-12 | Day surgery (SDC) | payer OTHER ==
[~2024-08-12] VITALS: Ht 170.1 cm; Wt 69.4 kg
[~2024-08-12] MED LIST changes: +ANTI-DIARRHEAL2 MG PO; +Lactated Ringer's Solution 500 ML IV ONE; +Lidocaine Hydrochloride 2% 5 ML SDV IV ONE; +PROPOFOL 200 MG/20 ML VIAL IV ONE; +VENT7GM INH
[2024-08-12 08:20] VITALS: BP 123/65
[2024-08-12 11:01] VITALS: BP 129/71
[2024-08-12 11:16] VITALS: BP 125/60
[2024-08-12 11:24] VITALS: BP 112/60
== END | disposition home or self-care (01) ==
LOC: SDC 07-25 09:30
PROVIDERS: ATTEND Surgery
DX: R19.7 Diarrhea, unspecified (principal); K63.5 Polyp of colon; K64.8 Other hemorrhoids; G43.909 Migraine, unspecified, not intractable, without status migrainosus; E78.00 Pure hypercholesterolemia, unspecified; I10 Essential (primary) hypertension; F41.9 Anxiety disorder, unspecified; F32.A Depression, unspecified; Z87.440 Personal history of urinary (tract) infections; Z90.710 Acquired absence of both cervix and uterus; Z98.891 History of uterine scar from previous surgery; Z90.49 Acquired absence of other specified parts of digestive tract; Z87.891 Personal history of nicotine dependence; Z86.16 Personal history of COVID-19; Z98.890 Other specified postprocedural states; Z79.899 Other long term (current) drug therapy; Z88.5 Allergy status to narcotic agent; Z88.8 Allergy status to other drugs, medicaments and biological substances; Z82.49 Family history of ischemic heart disease and other diseases of the circulatory system

== ENCOUNTER 2024-10-13 12:22 | Emergency (ER) | payer OTHER ==
[~2024-10-13] VITALS: Ht 172.7 cm; Wt 77.1 kg
[~2024-10-13 12:22] MED LIST changes: -Lactated Ringer's Solution 500 ML IV ONE; -Lidocaine Hydrochloride 2% 5 ML SDV IV ONE; -PROPOFOL 200 MG/20 ML VIAL IV ONE
[2024-10-13] MEDS ORDERED: Albuterol Sulf/Ipratropium 3 ML VIAL NEB ONE (12:55)
[2024-10-13 13:21] LABS: BASO % 0.4 % (0.0-1.0); EOS % 0.3 % (1.0-4.0); HEMATOCRIT 32.8 % (37.0-47.0); MEAN CELL VOLUME 85.2 fl (81.0-99.0); MEAN CORPUSCULAR HGB 24.7 pg (27.0-31.0); MEAN PLATELET VOLUME 9.4 fl (9.6-12.3); MONO # 0.3 10*3/uL (0.1-1.0); MONO % 4.8 % (3.0-9.0); NEUT # 4.2 10*3/uL (2.3-7.9); PLATELET COUNT AUTOMATED 464 10*3/uL (130-400); RED BLOOD COUNT 3.85 10*6/uL (4.10-5.10); RED CELL DISTRI WIDTH 15.7 % (0-14.5); WHITE BLOOD COUNT 7.1 10*3/uL (4.8-10.8)
[2024-10-13 13:41] LABS: BUN 14 mg/dl (9-23); CHLORIDE 108 mmol/L (98-107); POTASSIUM 3.5 mmol/L (3.4-5.1)
[2024-10-13] MEDS ORDERED: VIBRAMYCIN100 MG PO (14:02)
[2024-10-13] MEDS ORDERED: PREDNISONE50 MG PO (14:02)
[2024-10-13] MEDS ORDERED: Doxycycline Hyclate 100 MG CAPSULE PO ONE (14:05)
== END 2024-10-13 14:10 | disposition home or self-care (01) ==
LOC: ED 12:22
PROVIDERS: Physician Assistant Medical
DX: J18.9 Pneumonia, unspecified organism (principal); Z20.822 Contact with and (suspected) exposure to COVID-19; J45.909 Unspecified asthma, uncomplicated; K21.9 Gastro-esophageal reflux disease without esophagitis; F41.9 Anxiety disorder, unspecified; Z88.5 Allergy status to narcotic agent; Z88.6 Allergy status to analgesic agent; Z91.041 Radiographic dye allergy status; Z79.899 Other long term (current) drug therapy; Z90.49 Acquired absence of other specified parts of digestive tract; Z98.890 Other specified postprocedural states; Z90.710 Acquired absence of both cervix and uterus; Z86.73 Personal history of transient ischemic attack (TIA), and cerebral infarction without residual deficits

== ENCOUNTER 2024-10-28 14:30 | Emergency (ER) | payer OTHER ==
[~2024-10-28] VITALS: Ht 172.7 cm; Wt 77.1 kg
[~2024-10-28 14:30] MED LIST changes: +PREDNISONE50 MG PO
[2024-10-28] MEDS ORDERED: Pantoprazole Sodium 40 MG VIAL IV ONE (15:05)
[2024-10-28] MEDS ORDERED: MG-AL HYDROXIDE/SIMETICONE 30 ML UDC PO ONE (15:05)
[2024-10-28 15:32] LABS: BASO % 0.4 % (0.0-1.0); EOS # 0.1 10*3/uL (0.0-0.4); EOS % 1.9 % (1.0-4.0); HEMATOCRIT 35.1 % (37.0-47.0); MEAN CELL VOLUME 83.6 fl (81.0-99.0); MEAN CORPUSCULAR HGB 24.5 pg (27.0-31.0); MEAN CORPUSCULAR HGB CONC 29.3 g/dl (33.0-37.0); MEAN PLATELET VOLUME 9.6 fl (9.6-12.3); MONO # 0.5 10*3/uL (0.1-1.0); MONO % 10.8 % (3.0-9.0); NEUT # 2.2 10*3/uL (2.3-7.9); NEUT % 46.7 % (47.0-73.0); PLATELET COUNT AUTOMATED 350 10*3/uL (130-400); RED CELL DISTRI WIDTH 16.6 % (0-14.5); WHITE BLOOD COUNT 4.8 10*3/uL (4.8-10.8)
[2024-10-28 18:05] LABS: ALKALINE PHOSPHATASE 123 U/L (46-116); BUN 10 mg/dl (9-23); CHLORIDE 105 mmol/L (98-107); POTASSIUM 3.9 mmol/L (3.4-5.1); SGPT/ALT 14 U/L (5-49); TOTAL PROTEIN 6.8 gm/dL (6.0-8.0)
== END 2024-10-28 18:28 | disposition home or self-care (01) ==
LOC: ED 14:30
PROVIDERS: Emergency Medicine
DX: R07.89 Other chest pain (principal); K21.9 Gastro-esophageal reflux disease without esophagitis; F32.A Depression, unspecified; F41.9 Anxiety disorder, unspecified; Z88.5 Allergy status to narcotic agent; Z91.041 Radiographic dye allergy status; Z88.6 Allergy status to analgesic agent; Z79.899 Other long term (current) drug therapy; Z90.49 Acquired absence of other specified parts of digestive tract; Z98.890 Other specified postprocedural states; Z90.711 Acquired absence of uterus with remaining cervical stump

== ENCOUNTER 2024-12-25 12:26 | Emergency (ER) | payer OTHER ==
[~2024-12-25] VITALS: Ht 172.7 cm; Wt 78.0 kg
[2024-12-25] MEDS ORDERED: FEROSUL325 M1 PO (12:40)
[2024-12-25] MEDS ORDERED: POTASSIUM CHLO20 ME3 PO (12:40)
[2024-12-25] MEDS ORDERED: ARIPIPRAZOLE10 MG PO (12:41)
[2024-12-25] MEDS ORDERED: Iodixanol 320 100 ML VIAL IV ONE (13:00)
[2024-12-25 13:13] LABS: BASO # 0.0 10*3/uL (0.0-0.1); BASO % 0.8 % (0.0-1.0); EOS # 0.1 10*3/uL (0.0-0.4); EOS % 1.7 % (1.0-4.0); MEAN CELL VOLUME 82.7 fl (81.0-99.0); MEAN CORPUSCULAR HGB 24.2 pg (27.0-31.0); MEAN PLATELET VOLUME 9.8 fl (9.6-12.3); MONO # 0.2 10*3/uL (0.1-1.0); MONO % 6.1 % (3.0-9.0); NEUT # 1.6 10*3/uL (2.3-7.9); NEUT % 45.4 % (47.0-73.0); NUCLEATED RED BLOOD CELL 0.0 % (0.0-0.0); NUCLEATED RED BLOOD CELL 0.0 10*3/uL (0.0-0.0); PLATELET COUNT AUTOMATED 422 10*3/uL (130-400); RED CELL DISTRI WIDTH 16.2 % (0-14.5)
[2024-12-25 13:36] LABS: BILIRUBIN Negative (Negative); BLOOD Negative (Negative); CLARITY Cloudy (Clear); COLOR Yellow (Yellow); KETONE Trace (Negative); LEUKO ESTERASE 2+ (Negative); NITRITE Negative (Negative); PH 5.0 (4.5-8.0); SPECIFIC GRAVITY >= 1.030 (1.001-1.030); UROBILINOGEN 1.0 E.U./dl (0.0-1.0)
[2024-12-25 13:45] LABS: BUN 12 mg/dl (9-23); SGPT/ALT 8 U/L (5-49)
[2024-12-25 13:56] LABS: BACTERIA 3+; CALCIUM OXALATE CRYSTALS Trace; MUCOUS 3+; RBC 0-2 rbc/hpf (0-2); WBC 16-20 wbc/hpf (0-5)
[2024-12-25] MEDS ORDERED: POTASSIUM CHLORIDE 20 MEQ TAB PO ONE (14:35)
[2024-12-25] MEDS ORDERED: MACROBID100 M1 PO (15:01)
[2024-12-25] MEDS ORDERED: PREDNISONE20 M1 PO (15:01)
== END 2024-12-25 15:12 | disposition home or self-care (01) ==
LOC: ED 12:26
PROVIDERS: Nurse Practitioner Family
DX: K52.9 Noninfective gastroenteritis and colitis, unspecified (principal); N39.0 Urinary tract infection, site not specified; J44.9 Chronic obstructive pulmonary disease, unspecified; F32.A Depression, unspecified; F41.9 Anxiety disorder, unspecified; E78.00 Pure hypercholesterolemia, unspecified; Z79.899 Other long term (current) drug therapy; Z88.2 Allergy status to sulfonamides; Z88.6 Allergy status to analgesic agent; Z90.49 Acquired absence of other specified parts of digestive tract; Z90.710 Acquired absence of both cervix and uterus; Z98.890 Other specified postprocedural states

== ENCOUNTER 2025-01-16 11:26 | Emergency (ER) | payer OTHER ==
[~2025-01-16] VITALS: Ht 170.1 cm; Wt 7.7 kg
[~2025-01-16 11:26] MED LIST changes: +FEROSUL325 M1 PO; +POTASSIUM CHLO20 ME3 PO
[2025-01-16] MEDS ORDERED: LORazepam 1 MG TAB PO ONE (11:35)
[2025-01-16] MEDS ORDERED: Ondansetron Hydrochloride 4 MG/2 ML VIAL IV ONE (11:35)
[2025-01-16] MEDS ORDERED: NITROGLYCERIN 0.4 MG BOT SL ONE (11:35)
[2025-01-16] MEDS ORDERED: SODIUM CHLORIDE 0.9% 1,000 ML IV ONE (11:35)
[2025-01-16] MEDS ORDERED: ABILIFY10 MG PO (11:41)
[2025-01-16 12:28] LABS: BASO # 0.0 10*3/uL (0.0-0.1); BASO % 0.2 % (0.0-1.0); EOS # 0.0 10*3/uL (0.0-0.4); EOS % 0.9 % (1.0-4.0); MEAN CELL VOLUME 84.1 fl (81.0-99.0); MEAN CORPUSCULAR HGB 24.2 pg (27.0-31.0); MEAN PLATELET VOLUME 10.1 fl (9.6-12.3); MONO # 0.3 10*3/uL (0.1-1.0); MONO % 6.3 % (3.0-9.0); NEUT # 2.3 10*3/uL (2.3-7.9); NEUT % 53.8 % (47.0-73.0); NUCLEATED RED BLOOD CELL 0.0 % (0.0-0.0); NUCLEATED RED BLOOD CELL 0.0 10*3/uL (0.0-0.0); PLATELET COUNT AUTOMATED 351 10*3/uL (130-400); RED CELL DISTRI WIDTH 16.5 % (0-14.5)
[2025-01-16 12:38] LABS: BUN 12 mg/dl (9-23); SGPT/ALT 15 U/L (5-49)
== END 2025-01-16 12:56 | disposition home or self-care (01) ==
LOC: ED 11:26
PROVIDERS: Emergency Medicine
DX: R07.89 Other chest pain (principal); R61 Generalized hyperhidrosis; R11.0 Nausea; E78.5 Hyperlipidemia, unspecified; F41.9 Anxiety disorder, unspecified; F32.A Depression, unspecified; J45.909 Unspecified asthma, uncomplicated; I10 Essential (primary) hypertension; Z88.5 Allergy status to narcotic agent; Z88.6 Allergy status to analgesic agent; Z79.899 Other long term (current) drug therapy; Z90.49 Acquired absence of other specified parts of digestive tract; Z90.710 Acquired absence of both cervix and uterus

== ENCOUNTER 2025-01-29 08:50 | Emergency (ER) | payer OTHER ==
[~2025-01-29] VITALS: Ht 170.1 cm; Wt 77.1 kg
[~2025-01-29 08:50] MED LIST changes: +ABILIFY10 MG PO
[2025-01-29] MEDS ORDERED: Ondansetron Hydrochloride 4 MG TAB PO ONE (10:15)
[2025-01-29] MEDS ORDERED: ACETAMINOPHEN 325 MG TAB PO ONE (10:20)
[2025-01-29] MEDS ORDERED: Ondansetron4 MG PO (12:02)
== END 2025-01-29 12:04 | disposition home or self-care (01) ==
LOC: ED 08:50
DX: B34.9 Viral infection, unspecified (principal); R11.2 Nausea with vomiting, unspecified; R19.7 Diarrhea, unspecified; Z88.5 Allergy status to narcotic agent; Z88.6 Allergy status to analgesic agent; Z79.899 Other long term (current) drug therapy; Z90.49 Acquired absence of other specified parts of digestive tract; Z98.890 Other specified postprocedural states; Z90.710 Acquired absence of both cervix and uterus; Z20.822 Contact with and (suspected) exposure to COVID-19

== ENCOUNTER 2025-03-10 10:20 | Emergency (ER) | payer OTHER ==
[~2025-03-10] VITALS: Ht 170.1 cm; Wt 76.2 kg
[2025-03-10] MEDS ORDERED: Acetaminophen/Hydrocodone 5 MG/325 MG TABLET PO ONE ×2 (11:10→12:30)
[2025-03-10] MEDS ORDERED: CYCLOBENZAPRINE10 MG PO (12:26)
== END 2025-03-10 12:34 | disposition home or self-care (01) ==
LOC: ED 10:20
DX: S46.912A Strain of unspecified muscle, fascia and tendon at shoulder and upper arm level, left arm, initial encounter (principal); Z90.710 Acquired absence of both cervix and uterus; J44.9 Chronic obstructive pulmonary disease, unspecified; G43.909 Migraine, unspecified, not intractable, without status migrainosus; F41.9 Anxiety disorder, unspecified; F32.A Depression, unspecified; E78.00 Pure hypercholesterolemia, unspecified; Z88.5 Allergy status to narcotic agent; Z88.8 Allergy status to other drugs, medicaments and biological substances; Z86.16 Personal history of COVID-19; Z90.49 Acquired absence of other specified parts of digestive tract; Z98.890 Other specified postprocedural states; X58.XXXA Exposure to other specified factors, initial encounter; Y93.89 Activity, other specified; Y92.89 Other specified places as the place of occurrence of the external cause; Y99.8 Other external cause status

== ENCOUNTER → 2025-04-22 | Outpatient (CLI) | payer OTHER ==
[2025-04-22 10:24] LABS: BUN 16 mg/dl (9-23); GAMMA GLUTAMYL TRANSFERASE 21 U/L (0-38); SGPT/ALT < 7 U/L (5-49)
== END | disposition home or self-care (01) ==
LOC: LAB 08:47
PROVIDERS: Student in an Organized Health Care Education/Training Program; ATTEND Family Medicine
DX: R74.8 Abnormal levels of other serum enzymes (principal)

== ENCOUNTER 2025-04-30 09:40 | Emergency (ER) | payer OTHER ==
[~2025-04-30] VITALS: Wt 79.4 kg
[2025-04-30] MEDS ORDERED: Acetaminophen/Hydrocodone 5 MG/325 MG TABLET PO ONE (10:15)
== END 2025-04-30 11:34 | disposition home or self-care (01) ==
LOC: ED 09:40
DX: S20.211A Contusion of right front wall of thorax, initial encounter (principal); S80.01XA Contusion of right knee, initial encounter; S40.011A Contusion of right shoulder, initial encounter; Z88.5 Allergy status to narcotic agent; Z88.6 Allergy status to analgesic agent; Z79.899 Other long term (current) drug therapy; Z90.49 Acquired absence of other specified parts of digestive tract; Z98.890 Other specified postprocedural states; W19.XXXA Unspecified fall, initial encounter; Y93.89 Activity, other specified; Y92.89 Other specified places as the place of occurrence of the external cause; Y99.8 Other external cause status